=== PATIENT | male | born 1950 | race Asian ===

== ENCOUNTER 2019-09-11 12:39 | Inpatient (IN) | payer BC ==
--- NOTE | 2019-09-11 13:09 | Emergency Department Report ---
HPI - General Chief Complaint: Weakness Time Seen by Provider: 09/11/19 12:55 - HPI HPI: 69-year-old male presents to the emergency department with complaint of a one- week history of left-sided weakness. He was down in the [facility] for a reunion when the symptoms began. The patient does not have any known past medical history but also does not follow-up with any physicians and has not for years. When the left-sided weakness began the patient was seen at a hospital in the [facility]. He was diagnosed with diabetes after being found to have a h emoglobin A1c of about 10. He also had a CT scan of the head that showed some right-sided parietal hypodensity and suspicion of vasogenic edema on a CT scan of the head, and family has the report. However the patient was cleared for travel and 1 of his family members went to get him in the [facility]. He denies any headache, vision change, fever, slurred speech. ED Past Medical Hx - Past Medical History Previous Medical History?: Yes Hx Diabetes: Yes - Surgical History Past Surgical History?: No ED Review of Systems ROS: Stated complaint: WEAK, LEFT SIDE ISSUE Other details as noted in HPI Comment: All other systems reviewed and negative Constitutional: denies: chills, fever Eyes: denies: eye pain, vision change ENT: denies: ear pain, throat pain Respiratory: denies: cough Cardiovascular: denies: chest pain, palpitations Gastrointestinal: denies: abdominal pain, vomiting Genitourinary: denies: dysuria, discharge Musculoskeletal: denies: back pain, arthralgia Skin: denies: rash, lesions Neurological: weakness, numbness. denies: headache Physical Exam - Physical Exam Physical Exam: GENERAL: The patient is well-developed well-nourished. HENT: Normocephalic. Atraumatic. Patient has moist mucous membranes. EYES: Extraocular motions are intact. Pupils equal reactive to light bilaterally. No nystagmus. NECK: Supple. Trachea is midline. CHEST/LUNGS: Clear to auscultation. There is no respiratory distress noted. HEART/CARDIOVASCULAR: Regular. There is no tachycardia. There is no murmur. ABDOMEN: Abdomen is soft, nontender. Patient has normal bowel sounds. There is no abdominal distention. SKIN: Skin is warm and dry. Patient has some ecchymosis to the left forearm. NEURO: The patient is awake, alert, and oriented. The patient is cooperative. No facial asymmetry. Normal speech. Left-sided hemiparesis. There is decrease sensation to the left arm and left leg when compared to the right. MUSCULOSKELETAL: There is no tenderness or deformity. There is no evidence of acute injury. ED Course - Consultations Consultation #1: I spoke with the neurosurgeon, Dr. Joel Wen, regarding this patient's ED course and CT findings of vasogenic edema with concern for underlying mass. Dr. Maldonado is willing to come and see this patient as a consult. She has recommended for the patient to receive Decadron 20 mg IV x1 followed by Decadron 6 mg every 6 hours. She also recommends Keppra 500 mg twice daily after the patient receives a 1 g bolus. 09/11/19 14:56 ED Medical Decision Making - Lab Data Result diagrams: 09/11/19 13:22 09/11/19 13:22 - Radiology Data Radiology results: report reviewed CT BRAIN: 09/11/2019 INDICATION / CLINICAL INFORMATION: left sided hemiparesis. COMPARISON: None available. FINDINGS: BRAIN/INTRACRANIAL STRUCTURES: Unenhanced CT images of the brain were obtained. There are 3 areas of abnormal vasogenic edema consistent with multifocal metastatic disease. The largest area of vasogenic edema involves the right frontal parietal lobe, extending over a range of at least 6.5 cm. There may be an indication of the focal underlying lesion in the right frontal lobe, best seen on axial image 24. Additional areas of Visigenic edema is present in the left medial parietal lobe and left frontal lobe. Further evaluation with postcontrast CT or preferably unenhanced and enhanced MRI is suggested. There is no CT evidence of hemorrhage. There are no abnormal extra-axial fluid collections. EXTRACRANIAL STRUCTURES: Unremarkable. IMPRESSION: Areas of abnormal vasogenic edema as described above, worrisome for underlying metastatic disease. The largest area of involvement is in the right frontoparietal lobes. Follow-up contrast CT or unenhanced and enhanced MRI recommended. CT CHEST WITHOUT CONTRAST INDICATION / CLINICAL INFORMATION: RUL chest mass. TECHNIQUE: Axial CT images were obtained through the chest without contrast. All CT scans at this location are performed using CT dose reduction for ALARA by means of automated exposure control. COMPARISON: None available. FINDINGS: HEART: No significant abnormality. THORACIC AORTA: No significant abnormality. MEDIASTINUM and RGEGG: Fullness in the mediastinum suggestive of mediastinal lymphadenopathy but distinct margins of lymph nodes are not discernible. There appears to be pretracheal and subcarinal lymphadenopathy. LUNGS: A poorly aamir inated mass of the right upper lobe with obstruction of the right upper lobe bronchus and complete collapse of the right upper lobe. The size of the mass cannot be determined on this noncontrast exam. Reticular opacities of the right middle lobe extending to the hilum. A spiculated mass of the left upper lobe measures 2.4 x 1.3 cm image 54, series 2. PLEURA: No significant pleural effusion. No pneumothorax. ADDITIONAL FINDINGS: None. UPPER ABDOMEN: No significant abnormality. SKELETAL SYSTEM: No suspicious bone lesion. IMPRESSION: 1. Right upper lobe bronchogenic carcinoma obstructing the right upper lobe bronchus and producing complete collapse of the right upper lobe. The exact size of the tumor cannot be determine on this noncontrast exam. 2. Mediastinal metastatic lymphadenopathy. 3. A 2.4 cm left upper lobe lung metastasis. 4. No evidence of skeletal or hepatic metastasis. - Medical Decision Making This patient presents to the emergency department with complaint of a one-week history of progressively worsening left-sided weakness. On examination the patient has left-sided hemiparesis. He also has some numbness. He has an NIH stroke scale of 9. However the patient is well outside of the window for any TPA or thrombectomy. His CT scan of the head without contrast once again shows vasogenic edema with concern for underlying mass. A chest x-ray was done that shows a large right upper lobe mass. A CT scan without contrast was done that once again shows a very large right upper lobe mass with some lung collapse and a smaller left upper lobe mass that could be metastasis. Patient's labs have been unremarkable. At the patient's request, and the request of his , I contacted Dr. Joel Wen and Dr. Joel Wen was willing to consult on this patient. Patient was given Keppra for seizure prophylaxis and placed on Decadron. An MRI has been ordered. The patient will be admitted to the hospital for further evaluation and treatment and was accepted for admission by the hospitalist, Dr. Tenorio. - Differential Diagnosis Malignancy, CVA, hydrocephalus, electrolyte abnormalities Critical Care Time: Yes Critical care time in (mins) excluding proc time.: 35 Critical care attestation.: If time is entered above; I have spent that time in minutes in the direct care of this critically ill patient, excluding procedure time. Due to the immediate potential for life-threatening deterioration due to underlying neurologic and oncologic conditions, I spent 35 minutes of critical care time with the patient. Critical care time was spent on this patient in doing his initial evaluation, multiple re-evaluations, ordering and interpretation of labs and imaging, discussion with neurosurgery and the hospitalist services, as well as multiple discussion with the patient and his family. Critical Care Time: 35 minutes ED Disposition Clinical Impression: Vasogenic brain edema, Mass of upper lobe of right lung, Mass of upper lobe of left lung Hemiparesis of left nondominant side Qualifiers: Hemiparesis etiology: unspecified Qualified Code(s): G81.94 - Hemiplegia, unspecified affecting left nondominant side Disposition: OP ADMIT IP TO THIS HOSP Is pt being admited?: Yes Condition: Serious Time of Disposition: 17:03 - Assessment Assessment Interval: 7-10 Days - Level of Consciousness 1a. Level of Consciousness: alert/keenly responsive - LOC Questions 1b. LOC Questions: answers both correctly - LOC Command 1c. LOC Commands: performs tasks correctly - Best Gaze 2. Best Gaze: normal - Visual 3. Visual: no visual loss - Facial Palsy 4. Facial Palsy: normal symmetrical movement - Motor Arm 5a. Motor Arm Left: no movement 5b. Motor Arm Right: no drift - Motor Leg 6a. Motor Leg Left: no movement 6b. Motor Leg Right: no drift - Limb Ataxia 7. Limb Ataxia: absent - Sensory 8. Sensory: mild/moderate sensory loss - Best Language 9. Best Language: no aphasia - Dysarthria 10. Dysarthria: normal - Extinction and Inattention 11. Extinction/Inattention: no abnormality - Scoring Total Score: 9 Stroke Severity: Moderate Stroke
[2019-09-11 13:42] LABS: Basophils % (Auto) 0.6 % (0.0-1.8); Eosinophils # (Auto) 0.2 K/mm3 (0.0-0.4); Eosinophils % (Auto) 3.8 % (0.0-4.3); Hematocrit 38.5 % (35.5-45.6); Hemoglobin 12.5 gm/dl (11.8-15.2); Lymphocytes # (Auto) 1.3 K/mm3 (1.2-5.4); Lymphocytes % (Auto) 20.3 % (13.4-35.0); Mean Corpuscular HGB Conc 32 % (32-34); Mean Corpuscular Volume 86 fl (84-94); Monocytes # (Auto) 0.5 K/mm3 (0.0-0.8); Monocytes % (Auto) 7.6 % (0.0-7.3); Platelet Count 300 K/mm3 (140-440); Red Blood Count 4.47 M/mm3 (3.65-5.03); Red Cell Distribution Width 14.2 % (13.2-15.2)
--- NOTE | 2019-09-11 13:43 | XRay Report ---
CHEST 1 VIEW INDICATION: weakness. COMPARISON: None. FINDINGS: Support devices: None. Heart: Within normal limits. Pulmonary vasculature: Normal. Lungs/Pleura: The right lung apex and a significant portion of the right upper lobe are densely opaci fied with sharp demarcation between abnormal and normal lung. The right hilum is retracted superiorly . The right lung base is clear. The left lung is normally expanded and clear.No pleural effusion. Additional findings: None. IMPRESSION: 1. Large right upper lobe lung mass with collapse of the right upper lobe. 2. No CHF or pneumonia. Signer Name: Efrain Oden MD Signed: 09/11/2019 1:38 PM Workstation Name: [id number]
[2019-09-11 13:47] LABS: INR 1.02 (0.87-1.13)
[2019-09-11 13:48] LABS: Partial Thromboplastin Time 41.7 Sec. (24.2-36.6)
--- NOTE | 2019-09-11 14:17 | Cat Scan Report ---
CT BRAIN: 09/11/2019 INDICATION / CLINICAL INFORMATION: left sided hemiparesis. COMPARISON: None available. FINDINGS: BRAIN/INTRACRANIAL STRUCTURES: Unenhanced CT images of the brain were obtained. There are 3 areas of abnormal vasogenic edema consistent with multifocal metastatic disease. The larg est area of vasogenic edema involves the right frontal parietal lobe, extending over a range of at le ast 6.5 cm. There may be an indication of the focal underlying lesion in the right frontal lobe, best seen on axial image 24. Additional areas of Visigenic edema is present in the left medial parietal lobe and left frontal lobe . Further evaluation with postcontrast CT or preferably unenhanced and enhanced MRI is suggested. There is no CT evidence of hemorrhage. There are no abnormal extra-axial fluid collections. EXTRACRANIAL STRUCTURES: Unremarkable. IMPRESSION: Areas of abnormal vasogenic edema as described above, worrisome for underlying metastatic disease. T he largest area of involvement is in the right frontoparietal lobes. Follow-up contrast CT or unenhan benjamin and enhanced MRI recommended. All CT scans at this location are performed using dose reduction to ALARA by means of automated expos ure control. Signer Name: Denis Liu MD Signed: 09/11/2019 2:13 PM Workstation Name: [email or web address]
--- NOTE | 2019-09-11 14:24 | Cat Scan Report ---
CT CHEST WITHOUT CONTRAST INDICATION / CLINICAL INFORMATION: RUL chest mass. TECHNIQUE: Axial CT images were obtained through the chest without contrast. All CT scans at this location are p erformed using CT dose reduction for ALARA by means of automated exposure control. COMPARISON: None available. FINDINGS: HEART: No significant abnormality. THORACIC AORTA: No significant abnormality. MEDIASTINUM and GREGG: Fullness in the mediastinum suggestive of mediastinal lymphadenopathy but disti nct margins of lymph nodes are not discernible. There appears to be pretracheal and subcarinal lympha denopathy. LUNGS: A poorly marginated mass of the right upper lobe with obstruction of the right upper lobe bron chus and complete collapse of the right upper lobe. The size of the mass cannot be determined on this noncontrast exam. Reticular opacities of the right middle lobe extending to the hilum. A spiculated mass of the left upper lobe measures 2.4 x 1.3 cm image 54, series 2. PLEURA: No significant pleural effusion. No pneumothorax. ADDITIONAL FINDINGS: None. UPPER ABDOMEN: No significant abnormality. SKELETAL SYSTEM: No suspicious bone lesion. IMPRESSION: 1. Right upper lobe bronchogenic carcinoma obstructing the right upper lobe bronchus and producing co mplete collapse of the right upper lobe. The exact size of the tumor cannot be determine on this nonc ontrast exam. 2. Mediastinal metastatic lymphadenopathy. 3. A 2.4 cm left upper lobe lung metastasis. 4. No evidence of skeletal or hepatic metastasis. Signer Name: Efrain Oden MD Signed: 09/11/2019 2:20 PM Workstation Name: [id number]
[2019-09-11] MEDS ORDERED: levETIRAcetam 1000 MG/NS 0.75% 1,000 MG/100 ML BAG IV ONE (14:52)
[2019-09-11] MEDS ORDERED: dexAMETHasone 20 MG in SODIUM CHLORIDE 0.9% 50 ML IV ONE (14:52)
[2019-09-11 15:08] LABS: Alanine Aminotransferase 7 units/L (7-56); Albumin 3.9 g/dL (3.9-5); BUN/Creatinine Ratio 20; Blood Urea Nitrogen 12 mg/dL (9-20); Calcium 9.2 mg/dL (8.4-10.2); Hemolysis Index 4
[2019-09-11] MEDS ORDERED: ALBUTEROL 2.5 MG/3 ML NEBU IH PRN (15:14)
--- NOTE | 2019-09-11 15:16 | History and Physical Report ---
History of Present Illness Chief complaint: I feel we, left side and is been going on for a while History of present illness: 69 YO Male with DM presents to ED for evaluation. Patient states that he has experienced left-sided weakness over the past 1 week with progressively worsening symptoms over the same timeframe. Patient was seen and evaluated at an outside hospital in the [facility] at the outset of symptoms 1 week ago and was diagnosed with new onset diabetes mellitus as well as abnormal findings on brain's CT scan. Patient traveled back [facility] and upon arrival the patient decided to seek further care. Patient transported to [facility] via private vehicle. Patient seen and evaluated in the emergency department. Lab and imaging studies reviewed. Patient underwent CT scan of the brain which showed vasogenic edema as well as CT scan of the chest which showed bilateral lung nodules consistent with malignancy. Neurosurgery service consulted and the patient deemed not a candidate for transfer. Patient will be seen and evaluated by neurosurgical service. Patient admitted to [facility] and initiated on IV Decadron therapy as well as Keppra therapy as per neurosurgery recommendations. Patient denies fever, chills, chest pain, palpitations, trauma, productive cough, unintentional weight loss, night sweats, skin rash, or known ill contacts. No prior admission for review. No medication listed for reconciliation at the time of admission. Past History Past Medical History: diabetes Past Surgical History: No surgical history, Other (Reviewed) Social history: , lives with family. denies: smoking, alcohol abuse, prescription drug abuse Family history: no significant family history, other (Reviewed) Medications and Allergies Allergies Allergy/AdvReac Type Severity Reaction Status Date / Time No Known Allergies Allergy Unverified 09/11/19 12:46 Active Meds: Active Medications Dexamethasone 20 mg/ Sodium (Chloride) 55 mls @ 100 mls/hr IV ONCE ONE Stop: 09/11/19 15:24 Review of Systems Constitutional: no weight loss, no weight gain, no fever, no chills Ears, nose, mouth and throat: no ear pain, no ear discharge, no nose pain, no nasal congestion Cardiovascular: no chest pain, no orthopnea, no palpitations, no edema, no syncope, no lightheadedness Respiratory: no cough, no cough with sputum, no hemoptysis, no dyspnea on exertion Gastrointestinal: no nausea, no vomiting, no diarrhea, no change in bowel habits, no hematemesis Genitourinary Male: no dysuria, no hematuria, no flank pain, no urinary frequency, no urinary hesitancy, no nocturia, no erectile dysfunction Rectal: no pain, no incontinence, no bleeding Musculoskeletal: no neck stiffness, no neck pain, no shooting arm pain, no low back pain Integumentary: no rash, no pruritis, no redness, no wounds, no jaundice Neurological: weakness, numbness, no tingling, no seizures, no syncope, no vertigo, no headaches, no migraines, no convulsions, no aphasia, no change in speech, no confusion Psychiatric: no anxiety, no memory loss, no change in sleep habits, no hypersomnia, no change in appetite, no change in libido, no disorientation, no hallucinations Endocrine: no cold intolerance, no heat intolerance, no polyphagia, no excessive thirst, no polydipsia, no polyuria, no nocturia, no excessive sweating, no weight change Hematologic/Lymphatic: no lymphadenopathy, no lymphedema Allergic/Immunologic: no urticaria, no allergic rhinitis, no persistent infect ions, no angioedema Exam - Constitutional Vitals: Temp Pulse Resp BP Pulse Ox 18 09/11/19 13:03 General appearance: Present: no acute distress, well-nourished - EENT Eyes: Present: PERRL ENT: hearing intact, clear oral mucosa - Neck Neck: Present: supple, normal ROM - Respiratory Respiratory effort: normal Respiratory: bilateral: CTA - Cardiovascular Heart Sounds: Present: S1 & S2. Absent: rub, click - Extremities Extremities: pulses symmetrical, No edema Peripheral Pulses: within normal limits - Abdominal General gastrointestinal: Present: soft, non-tender, non-distended, normal bowel sounds Male genitourinary: Present: normal - Integumentary Integumentary: Present: clear, warm, dry - Musculoskeletal Musculoskeletal: left sided weakness - Psychiatric Psychiatric: appropriate mood/affect, intact judgment & insight - Neurologic Neurologic: CNII-XII intact, focal deficits, no moves all extremities, no gait normal Results - Labs CBC & Chem 7: 09/11/19 13:22 09/11/19 13:22 Labs: Abnormal lab results 09/11/19 09/11/19 09/11/19 Range/Units 13:22 13:22 13:22 [place] % (Auto) 7.6 H (0.0-7.3) % APTT 41.7 H (24.2-36.6) Sec. VBG pH (7.320-7.420) Chloride 94.9 L (98-107) mmol/L Creatinine 0.6 L (0.8-1.5) mg/dL Glucose 248 H (75-100) mg/dL 09/11/19 Range/Units 13:22 [place] % (Auto) (0.0-7.3) % APTT (24.2-36.6) Sec. VBG pH 7.297 L (7.320-7.420) Chloride (98-107) mmol/L Creatinine (0.8-1.5) mg/dL Glucose (75-100) mg/dL Assessment and Plan - Patient Problems (1) Vasogenic brain edema Current Visit: Yes Status: Acute Plan to address problem: Neurosurgery consult placed in ED, neurosurgery following, neurochecks, notify neurosurgery team for changes in neurologic exam, notify neurosurgery for symptoms consistent with pending herniation: Hypertension/bradycardia, IV Decadron every 6 hours scheduled, IV Keppra twice daily, supportive care. (2) Hemiparesis of left nondominant side Current Visit: Yes Status: Acute Qualifiers: Hemiparesis etiology: unspecified Qualified Code(s): G81.94 - Hemiplegia, unspecified affecting left nondominant side Plan to address problem: Supportive care, treat vasogenic edema, supportive care, neurosurgery consulted. (3) Mass of upper lobe of left lung Current Visit: Yes Status: Acute Plan to address problem: Pulmonary team consulted, suspect malignancy with metastatic disease to the brain, supportive care. CT scan chest, CT head, submental oxygen. (4) Mass of upper lobe of right lung Current Visit: Yes Status: Acute Plan to address problem: Pulmonary team consulted, suspect malignancy with metastatic disease to the brain, supportive care. CT scan chest, CT head, submental oxygen. (5) Diabetes Current Visit: Yes Status: Acute Plan to address problem: Consistent carbohydrate diet, sliding scale insulin therapy, Accu-Chek, hypoglycemia protocol. (6) DVT prophylaxis Current Visit: Yes Status: Acute Plan to address problem: SCD to bilateral lower extremities while in bed, hold anticoagulation overnight, reevaluate in a.m.
--- NOTE | 2019-09-11 17:54 | Magnetic Resonance Report ---
MR brain wo/w con INDICATION / CLINICAL INFORMATION: 69 years Male; MAIN: Brain mass, left side weakness. TECHNIQUE: Multiplanar, multisequence MR images of the brain were obtained. COMPARISON: None available. FINDINGS: BRAIN / INTRACRANIAL CONTENTS: Multiple enhancing lesions identified in both cerebral hemispheres. La rgest is seen in the postcentral gyral region on the right, measuring nearly 2 cm in maximum dimensio n. Significant surrounding vasogenic edema noted. No definitive signs of posterior fossa or brainstem involvement appreciated. Focal mass effect and minimal right to left midline shift noted. There is a lso significant edema associated with small lesions in the middle frontal gyral region on the left, a s well as the left precuneus. Overall, there is no diffusion abnormality to suggest bacterial abscess . Otherwise, no acute hemorrhage, mass effect, midline shift, hydrocephalus, or acute, large territori al infarct. No chronic infarct or atrophy. Minimal, nonspecific white matter disease otherwise noted. CRANIOCERVICAL JUNCTION: No significant abnormality. VASCULAR FLOW-VOIDS: No significant abnormality. ORBITS: No significant abnormality of visualized orbits. SINUSES / MASTOIDS: Mild to moderate mucosal thickening seen in the ethmoids and inferior mastoids on the right. ADDITIONAL FINDINGS: None. IMPRESSION: 1. Findings concerning for metastatic disease, as described above. Signer Name: Skinny Grewal MD, III Signed: 09/11/2019 5:50 PM Workstation Name: [id number]
--- NOTE | 2019-09-11 20:45 | Consultation ---
History of Present Illness Consult date: 09/11/19 Requesting physician: VERONIQUE GERARDO Reason for Consult: brain tumor Chief complaint: Left sided weakness History of present illness: 69 year old male with history of new onset diabetes and left sided weakness. He presented to the ED with complaining of left side weakness for over one we ek. He admits to chronic tobacco use. He denies headaches. Imaging studies in ED revealed CT chest with left and right upper lobe masses. MRI and CT head reveals multiple lesions within bilateral hemispheres. Past History Past Medical History: diabetes Past Surgical History: No surgical history, Other (Reviewed) Social history: , lives with family. denies: smoking (positive tobbaco use), alcohol abuse, prescription drug abuse Family history: no significant family history, other (Reviewed) Medications and Allergies Allergies Allergy/AdvReac Type Severity Reaction Status Date / Time No Known Allergies Allergy Unverified 09/11/19 12:46 Active Meds: Active Medications Albuterol (Proventil) 2.5 mg IH Q3HRT PRN PRN Reason: Shortness Of Breath Dexamethasone (Decadron) 6 mg IV Q6HR DENISE Levetiracetam 500 mg/ Dextrose 105 mls @ 400 mls/hr IV Q12HR DENISE Sodium Chloride (Sodium Chloride Flush Syringe 10 Ml) 10 ml IV BID DENISE Sodium Chloride (Sodium Chloride Flush Syringe 10 Ml) 10 ml IV PRN PRN PRN Reason: LINE FLUSH Review of Systems Constitutional: weight loss, weakness Physical Examination - Vital Signs Vital Signs: Vital Signs Resp 18 09/11/19 13:03 - Constitutional General appearance: comfortable - EENT EENT: Present: PERRL - Neurologic Cranial nerve examination: PERRL, EOMI, V1/V2/V3 grossly intact, face symmetric Speech examination: intact Detailed motor examination: other (left side hemiparesis) Motor examination - left side: 2/5: biceps, triceps, wrist flexion, wrist extension, qa reviewer, hip flexors, knee extensors Results - Laboratory Findings CBC and BMP: 09/11/19 13:22 09/11/19 13:22 Abnormal Lab Findings: Abnormal Labs 09/11/19 09/11/19 09/11/19 13:22 13:22 13:22 [place] % (Auto) 7.6 H APTT 41.7 H VBG pH Chloride 94.9 L Creatinine 0.6 L Glucose 248 H 09/11/19 13:22 [place] % (Auto) APTT VBG pH 7.297 L Chloride Creatinine Glucose - Diagnostic Findings Additional findings: MRI of brain with and without contrast shows up to 6 lesions contrast enhancing with significant edema around the right fronto parietal and left parietal area. The other lesions are small and distributed throughout the brain parenchyma. Assessment and Plan - Patient Problems (1) Vasogenic brain edema Current Visit: Yes Status: Acute Plan to address problem: Continue IV decadron and Keppra. Switch to oral meds as tolerated. PT/OT evaluation and treatment. I recommend biopsy of lung lesion and whole brain radiation. Non operative unless biopsy cannot be obtained from lung lesions. Please call me if brain biopsy is needed.
[2019-09-11] MEDS: levETIRAcetam 500 MG in DEXTROSE 5% IN WATER 100 ML IV SCH (21:38)
[2019-09-11] MEDS: dexAMETHasone 4 MG/ML VIAL IV SCH ×2 (21:39→23:07)
[2019-09-12 05:01] LABS: Basophils % (Auto) 0.2 % (0.0-1.8); Eosinophils % (Auto) 0.1 % (0.0-4.3); Hematocrit 37.7 % (35.5-45.6); Hemoglobin 12.6 gm/dl (11.8-15.2); Lymphocytes # (Auto) 0.5 K/mm3 (1.2-5.4); Lymphocytes % (Auto) 12.2 % (13.4-35.0); Mean Corpuscular HGB Conc 33 % (32-34); Mean Corpuscular Volume 86 fl (84-94); Monocytes % (Auto) 1.2 % (0.0-7.3); Platelet Count 305 K/mm3 (140-440); Red Blood Count 4.41 M/mm3 (3.65-5.03)
[2019-09-12 05:23] LABS: BUN/Creatinine Ratio 27; Blood Urea Nitrogen 16 mg/dL (9-20); Hemolysis Index 11
[2019-09-12] MEDS: dexAMETHasone 4 MG/ML VIAL IV SCH ×4 (06:48→23:40)
--- NOTE | 2019-09-12 09:20 | Consultation ---
History of Present Illness Consult date: 09/12/19 Requesting physician: VERONIQUE GERARDO Reason for consult: abnormal CXR/CT History of present illness: 69 y/o male who presented with weakness. CT head showed vasogenic edema and multiple lesions. CT chest showed right upper lobe and left upper lobe lesions. Pulmonary consulted for lesions. Past History Past Medical History: diabetes Past Surgical History: No surgical history, Other (Reviewed) Social history: , lives with family. denies: smoking (positive tobbaco use), alcohol abuse, prescription drug abuse Family history: no significant family history, other (Reviewed) Medications and Allergies Allergies Allergy/AdvReac Type Severity Reaction Status Date / Time No Known Allergies Allergy Unverified 09/11/19 12:46 Active Meds: Active Medications Albuterol (Proventil) 2.5 mg IH Q3HRT PRN PRN Reason: Shortness Of Breath Dexamethasone (Decadron) 6 mg IV Q6HR [facility] Last Admin: 09/12/19 06:48 Dose: 6 mg Documented by: Levetiracetam 500 mg/ Dextrose 105 mls @ 400 mls/hr IV Q12HR [facility] Last Admin: 09/11/19 21:38 Dose: 400 mls/hr Documented by: Sodium Chloride (Sodium Chloride Flush Syringe 10 Ml) 10 ml IV BID [facility] Last Admin: 09/11/19 21:46 Dose: 10 ml Documented by: Sodium Chloride (Sodium Chloride Flush Syringe 10 Ml) 10 ml IV PRN PRN PRN Reason: LINE FLUSH Review of Systems All systems: negative Physical Examination Vital signs: Vital Signs Resp 18 09/11/19 13:03 General appearance: no acute distress, alert Eyes: non-icteric ENT: oropharynx moist Neck: supple, no JVD Effort: normal Ascultation: Right: diminished breath sounds (upper lobe), Left: clear Percussion: Right: dull (upper lobe) Cardiovascular: regular rate and rhythm Gastrointestinal: normoactive bowel sounds, soft Extremities: no edema Results - Laboratory Findings CBC and BMP: 09/12/19 04:04 09/12/19 04:04 PT/INR, D-dimer PT 13.5 Sec. (12.2-14.9) 09/11/19 13:22 INR 1.02 (0.87-1.13) 09/11/19 13:22 Abnormal lab findings: Abnormal Labs 09/11/19 09/11/19 09/11/19 13:22 13:22 13:22 WBC Lymph % (Auto) [place] % (Auto) 7.6 H Lymph # Seg Neutrophils % APTT 41.7 H VBG pH Sodium Chloride 94.9 L Creatinine 0.6 L Glucose 248 H 09/11/19 09/12/19 09/12/19 13:22 04:04 04:04 WBC 4.1 L Lymph % (Auto) 12.2 L [place] % (Auto) Lymph # 0.5 L Seg Neutrophils % 86.3 H APTT VBG pH 7.297 L Sodium 134 L Chloride 94.6 L Creatinine 0.6 L Glucose 413 H - Diagnostic Findings Chest x-ray: image reviewed CT scan - chest: image reviewed Assessment and Plan Given the amount of vasogenic edema present on CT, would not feel comfortable performing bronch for biopsy given the chance for increases in intracranial pressure that could lead to herniation. At this time suggest CT guided biopsy of left upper lobe or event thoracentesis of right pleural effusion (maybe too small) to obtain diagnosis. Will discuss with patient and family.
[2019-09-12] MEDS: levETIRAcetam 500 MG in DEXTROSE 5% IN WATER 100 ML IV SCH ×2 (10:50→22:13)
[2019-09-12] MEDS: INSULIN LISPRO 100 UNIT/ML SUB-Q SCH ×4 (12:41→22:37)
--- NOTE | 2019-09-12 13:04 | Progress Note ---
Assessment and Plan Assessment and plan: --Right upper lobe bronchogenic carcinoma; On CT chest, pulmonary following CT-guided biopsy tomorrow oxygen titrate O2 sats to more than 90% --Complete collapse right upper lobe; Due to obstructing right upper lobe bronchogenic carcinoma Supportive care, pulmonary following --Mediastinal metastatic lymph nodes; Supportive care, follow lung lesion biopsy Oncology consult --Metastatic brain lesions/with vasogenic cerebral edema Neurosurgeon evaluated the patient, recommend IV Decadron IV Keppra, seizure precautions, poor prognosis. Oncology consult --Hyponatremia; due to hyperglycemia as well as secondary to brain lesion Closely monitor electrolytes --Type 2 diabetes mellitus; uncontrolled Accu-Cheks, sliding scale coverage, ADA diet Long-acting insulin, check A1c Diabetic education, nutrition education --DVT prophylaxis; SCDs No pharmacologic anticoagulation in view of pending Biopsy --Full CODE STATUS Very poor prognosis Discussed with patient's and son at the bedside Monitor closely and adjust management as needed. Plan of care reviewed with the patient's family and the nurse Critical care time 32 minutes History Interval history: Patient seen and examined in IMCU at the bedside this morning Patient's chart and other medical records reviewed Patient's and son at the bedside Complains of generalized weakness Scheduled for lung lesion biopsy tomorrow Patient chronically ill looking cachectic Mild distress Vital signs reviewed Hospitalist Physical - Constitutional Vitals: Temp Pulse Resp BP Pulse Ox 98.0 F 69 21 125/80 91 09/12/19 08:00 09/12/19 11:10 09/12/19 11:10 09/12/19 11:10 09/12/19 11:10 General appearance: Present: no acute distress, well-nourished - EENT Eyes: Present: PERRL, EOM intact - Neck Neck: Present: supple, normal ROM - Respiratory Respiratory effort: normal Respiratory: bilateral: diminished, rhonchi, negative: rales, wheezing - Cardiovascular Rhythm: regular Heart Sounds: Present: S1 & S2 - Extremities Extremities: no ischemia, No edema - Abdominal General gastrointestinal: soft, non-tender, non-distended, normal bowel sounds - Integumentary Integumentary: Present: clear, warm - Psychiatric Psychiatric: appropriate mood/affect, cooperative - Neurologic Neurologic: moves all extremities, other (Confused) Results - Labs CBC & Chem 7: 09/12/19 04:04 09/12/19 04:04 Labs: Laboratory Last Values WBC 4.1 K/mm3 (4.5-11.0) L 09/12/19 04:04 RBC 4.41 M/mm3 (3.65-5.03) 09/12/19 04:04 Hgb 12.6 gm/dl (11.8-15.2) 09/12/19 04:04 Hct 37.7 % (35.5-45.6) 09/12/19 04:04 MCV 86 fl (84-94) 09/12/19 04:04 MCH 29 pg (28-32) 09/12/19 04:04 MCHC 33 % (32-34) 09/12/19 04:04 RDW 14.0 % (13.2-15.2) 09/12/19 04:04 Plt Count 305 K/mm3 (140-440) 09/12/19 04:04 Lymph % (Auto) 12.2 % (13.4-35.0) L 09/12/19 04:04 [place] % (Auto) 1.2 % (0.0-7.3) 09/12/19 04:04 Eos % (Auto) 0.1 % (0.0-4.3) 09/12/19 04:04 Baso % (Auto) 0.2 % (0.0-1.8) 09/12/19 04:04 Lymph # 0.5 K/mm3 (1.2-5.4) L 09/12/19 04:04 [place] # 0.0 K/mm3 (0.0-0.8) 09/12/19 04:04 Eos # 0.0 K/mm3 (0.0-0.4) 09/12/19 04:04 Baso # 0.0 K/mm3 (0.0-0.1) 09/12/19 04:04 Seg Neutrophils % 86.3 % (40.0-70.0) H 09/12/19 04:04 Seg Neutrophils # 3.5 K/mm3 (1.8-7.7) 09/12/19 04:04 PT 13.5 Sec. (12.2-14.9) 09/11/19 13:22 INR 1.02 (0.87-1.13) 09/11/19 13:22 APTT 41.7 Sec. (24.2-36.6) H 09/11/19 13:22 VBG pH 7.297 (7.320-7.420) L 09/11/19 13:22 Sodium 134 mmol/L (137-145) L 09/12/19 04:04 Potassium 4.3 mmol/L (3.6-5.0) 09/12/19 04:04 Chloride 94.6 mmol/L (98-107) L 09/12/19 04:04 Carbon Dioxide 23 mmol/L (22-30) 09/12/19 04:04 Anion Gap 21 mmol/L 09/12/19 04:04 BUN 16 mg/dL (9-20) 09/12/19 04:04 Creatinine 0.6 mg/dL (0.8-1.5) L 09/12/19 04:04 Estimated GFR > 60 ml/min 09/12/19 04:04 BUN/Creatinine Ratio 27 % 09/12/19 04:04 Glucose 413 mg/dL (75-100) H 09/12/19 04:04 POC Glucose 382 (70-105) H 09/12/19 12:50 Calcium 9.0 mg/dL (8.4-10.2) 09/12/19 04:04 Total Bilirubin 0.30 mg/dL (0.1-1.2) 09/11/19 13:22 AST 17 units/L (5-40) 09/11/19 13:22 ALT 7 units/L (7-56) 09/11/19 13:22 Alkaline Phosphatase 101 units/L (35-129) 09/11/19 13:22 Troponin T < 0.010 ng/mL (0.00-0.029) 09/11/19 13:22 Total Protein 7.5 g/dL (6.3-8.2) 09/11/19 13:22 Albumin 3.9 g/dL (3.9-5) 09/11/19 13:22 Albumin/Globulin Ratio 1.1 % 09/11/19 13:22 TSH 1.460 mlU/mL (0.270-4.200) 09/11/19 13:22 Active Medications - Current Medications Current Medications: Generic Name Dose Route Start Last Admin Trade Name Freq PRN Reason Stop Dose Admin Albuterol 2.5 mg 09/11/19 15:14 Proventil IH Q3HRT PRN Shortness Of Breath Dexamethasone 6 mg 09/11/19 19:30 09/12/19 12:34 Decadron IV 6 mg Q6HR DENISE Administration Levetiracetam 500 mg/ Dextrose 105 mls @ 400 mls/hr 09/11/19 22:00 09/12/19 10:50 IV 400 mls/hr Q12HR DENISE Administration Insulin Human Lispro 0 unit 09/12/19 12:00 09/12/19 12:41 Humalog SUB-Q 10 unit Q6HR DENISE Administration Protocol Insulin Human Lispro 0 unit 09/12/19 16:30 Humalog SUB-Q ACHS DENISE Protocol Sodium Chloride 10 ml 09/11/19 22:00 09/12/19 10:50 Sodium Chloride Flush Syringe 10 Ml IV 10 ml BID DENISE Administration Sodium Chloride 10 ml 09/11/19 15:14 Sodium Chloride Flush Syringe 10 Ml IV PRN PRN LINE FLUSH Nutrition/Malnutrition Assess - Dietary Evaluation Nutrition/Malnutrition Findings: Nutrition Notes Start: 09/12/19 11:14 Freq: Status: Active Protocol: Document 09/12/19 11:14 MK (Rec: 09/12/19 11:28 [id number]) Co-Sign 09/12/19 11:14 LM Nutrition Notes Need for Assessment generated from: it service continuity supervisor,Education Initial or Follow up Assessment Current Diagnosis Diabetes Other Pertinent Diagnosis Lung mass, vasogenic brain edema Current Diet Consistent Carbohydrate Labs/Tests BG 413 Na 134 Cr 0.6 Pertinent Medications Reviewed Height 5 ft 10 in Weight 65 kg Usual Body Weight 72 kg [place] Body Weight (kg) 75.45 BMI 20.5 Intake Prior to Admission Good Weight change and time frame 22% wt change in 1 year Weight Status Appropriate Subjective/Other Information RN screen for DM education. Pt reports eating well and good appetite. Pt reports weight loss in last year due to high smoking and coffee consuption which he has recently decreased. Burn Absent Trauma Absent GI Symptoms None Current % PO Good (75-100%) Minimum of two criteria No Interpretation of Weight Loss (severe) > 20% in 1 year #1 Nutrition Diagnosis Food and nutrition-related knowledge deficit Etiology No prior education As Evidenced by Signs and Symptoms Pt report, recent DM diagnosis Is patient on ventilator? No Is Patient Ambulatory and/or Out of Bed Yes REE-([facility]-ambulatory/OOB) [ 1860.625 NUTR.[id number]] Calculation Used for Recommendations [facility] Additional Notes Pro: 65-78 g (1-1.2 g/kg) Fluid: 1 ml/kcal Nutrition Intervention Change Diet Order: Continue Teaching Recipient Patient,Family Learning Readiness Good Teaching Methods Discussion,Handout Response to Teaching Verbalize understanding, Reinforcement needed Education Handouts Provided Quick Refrence for CHO Counting Hypo/Hyperglycemia Signs CHO Counting for People with DM DM Label Reading Tips Barriers to Learning No Barriers RD phone number provided Yes Patient aware of follow up options Yes Goal #1 Understanding of consistent CHO diet Anticipated Discharge Needs: Consistent CHO Follow-Up By: 09/14/19 Additional Comments FU for DM education reinforcement
[2019-09-13] MEDS: dexAMETHasone 4 MG/ML VIAL IV SCH ×4 (06:43→23:40)
[2019-09-13] MEDS: INSULIN LISPRO 100 UNIT/ML SUB-Q SCH ×4 (08:30→22:22)
[2019-09-13] MEDS: INSULIN NPH/REGULAR 70/30 INJ SUB-Q SCH ×2 (08:44→17:35)
--- NOTE | 2019-09-13 09:53 | Progress Note ---
Assessment and Plan Assessment and plan: Patient scheduled for CT-guided biopsy of lung lesion today --Right upper lobe bronchogenic carcinoma; On CT chest, pulmonary following CT-guided biopsy today oxygen titrate O2 sats to more than 90% --Complete collapse right upper lobe; Due to obstructing right upper lobe bronchogenic carcinoma Supportive care, pulmonary following --Mediastinal metastatic lymph nodes; Supportive care, follow lung lesion biopsy Oncology consult --Metastatic brain lesions/with vasogenic cerebral edema Neurosurgeon evaluated the patient, recommend IV Decadron IV Keppra, seizure precautions, poor prognosis. Oncology consult --Hyponatremia; due to hyperglycemia as well as secondary to brain lesion Closely monitor electrolytes --Type 2 diabetes mellitus; uncontrolled Accu-Cheks, sliding scale coverage, ADA diet Long-acting insulin, check A1c Diabetic education, nutrition education --DVT prophylaxis; SCDs No pharmacologic anticoagulation in view of pending Biopsy --Full CODE STATUS Very poor prognosis Patient and family are aware History Interval history: Patient seen and examined at the bedside this morning Patient's is in the room Scheduled for CT-guided biopsy of lung lesion today N.p.o. status, patient is alert awake oriented x3 Not in acute distress, Vital signs reviewed Patient has no new complaints Hospitalist Physical - Constitutional Vitals: Temp Pulse Resp BP Pulse Ox 98.4 F 60 20 110/63 93 09/13/19 07:37 09/13/19 07:37 09/13/19 07:37 09/13/19 07:37 09/13/19 07:37 General appearance: Present: no acute distress, well-nourished - EENT Eyes: Present: PERRL, EOM intact - Neck Neck: Present: supple, normal ROM - Respiratory Respiratory effort: normal Respiratory: bilateral: diminished, rhonchi, negative: rales, wheezing - Cardiovascular Rhythm: regular Heart Sounds: Present: S1 & S2 - Extremities Extremities: no ischemia, No edema - Abdominal General gastrointestinal: soft, non-tender, non-distended, normal bowel sounds - Integumentary Integumentary: Present: clear, warm - Psychiatric Psychiatric: appropriate mood/affect, cooperative - Neurologic Neurologic: CNII-XII intact, moves all extremities Results - Labs CBC & Chem 7: 09/12/19 04:04 09/12/19 04:04 Labs: Laboratory Last Values WBC 4.1 K/mm3 (4.5-11.0) L 09/12/19 04:04 RBC 4.41 M/mm3 (3.65-5.03) 09/12/19 04:04 Hgb 12.6 gm/dl (11.8-15.2) 09/12/19 04:04 Hct 37.7 % (35.5-45.6) 09/12/19 04:04 MCV 86 fl (84-94) 09/12/19 04:04 MCH 29 pg (28-32) 09/12/19 04:04 MCHC 33 % (32-34) 09/12/19 04:04 RDW 14.0 % (13.2-15.2) 09/12/19 04:04 Plt Count 305 K/mm3 (140-440) 09/12/19 04:04 Lymph % (Auto) 12.2 % (13.4-35.0) L 09/12/19 04:04 [place] % (Auto) 1.2 % (0.0-7.3) 09/12/19 04:04 Eos % (Auto) 0.1 % (0.0-4.3) 09/12/19 04:04 Baso % (Auto) 0.2 % (0.0-1.8) 09/12/19 04:04 Lymph # 0.5 K/mm3 (1.2-5.4) L 09/12/19 04:04 [place] # 0.0 K/mm3 (0.0-0.8) 09/12/19 04:04 Eos # 0.0 K/mm3 (0.0-0.4) 09/12/19 04:04 Baso # 0.0 K/mm3 (0.0-0.1) 09/12/19 04:04 Seg Neutrophils % 86.3 % (40.0-70.0) H 09/12/19 04:04 Seg Neutrophils # 3.5 K/mm3 (1.8-7.7) 09/12/19 04:04 PT 13.5 Sec. (12.2-14.9) 09/11/19 13:22 INR 1.02 (0.87-1.13) 09/11/19 13:22 APTT 41.7 Sec. (24.2-36.6) H 09/11/19 13:22 VBG pH 7.297 (7.320-7.420) L 09/11/19 13:22 Sodium 134 mmol/L (137-145) L 09/12/19 04:04 Potassium 4.3 mmol/L (3.6-5.0) 09/12/19 04:04 Chloride 94.6 mmol/L (98-107) L 09/12/19 04:04 Carbon Dioxide 23 mmol/L (22-30) 09/12/19 04:04 Anion Gap 21 mmol/L 09/12/19 04:04 BUN 16 mg/dL (9-20) 09/12/19 04:04 Creatinine 0.6 mg/dL (0.8-1.5) L 09/12/19 04:04 Estimated GFR > 60 ml/min 09/12/19 04:04 BUN/Creatinine Ratio 27 % 09/12/19 04:04 Glucose 413 mg/dL (75-100) H 09/12/19 04:04 POC Glucose 257 (70-105) H 09/13/19 07:52 Hemoglobin A1c 12.2 % (4-6) H 09/13/19 04:06 Calcium 9.0 mg/dL (8.4-10.2) 09/12/19 04:04 Total Bilirubin 0.30 mg/dL (0.1-1.2) 09/11/19 13:22 AST 17 units/L (5-40) 09/11/19 13:22 ALT 7 units/L (7-56) 09/11/19 13:22 Alkaline Phosphatase 101 units/L (35-129) 09/11/19 13:22 Troponin T < 0.010 ng/mL (0.00-0.029) 09/11/19 13:22 Total Protein 7.5 g/dL (6.3-8.2) 09/11/19 13:22 Albumin 3.9 g/dL (3.9-5) 09/11/19 13:22 Albumin/Globulin Ratio 1.1 % 09/11/19 13:22 TSH 1.460 mlU/mL (0.270-4.200) 09/11/19 13:22 Active Medications - Current Medications Current Medications: Generic Name Dose Route Start Last Admin Trade Name Freq PRN Reason Stop Dose Admin Albuterol 2.5 mg 09/11/19 15:14 Proventil IH Q3HRT PRN Shortness Of Breath Dexamethasone 6 mg 09/11/19 19:30 09/13/19 06:43 Decadron IV 6 mg Q6HR DENISE Administration Levetiracetam 500 mg/ Dextrose 105 mls @ 400 mls/hr 09/11/19 22:00 09/12/19 22:13 IV 400 mls/hr Q12HR DENISE Administration Insulin Human Isoph/Insulin Regular 10 unit 09/13/19 08:00 09/13/19 08:44 Humulin 70/30 SUB-Q 10 unit BIDDIAB DENISE Administration Insulin Human Lispro 0 unit 09/12/19 16:30 09/13/19 08:30 Humalog SUB-Q 4 unit ACHS DENISE Administration Protocol Sodium Chloride 10 ml 09/11/19 22:00 09/12/19 22:14 Sodium Chloride Flush Syringe 10 Ml IV 10 ml BID DENISE Administration Sodium Chloride 10 ml 09/11/19 15:14 Sodium Chloride Flush Syringe 10 Ml IV PRN PRN LINE FLUSH Nutrition/Malnutrition Assess - Dietary Evaluation Nutrition/Malnutrition Findings: Nutrition Notes Start: 09/12/19 11:14 Freq: Status: Active Protocol: Document 09/12/19 11:14 THEODORA (Rec: 09/12/19 11:28 THEODORA [id number]) Co-Sign 09/12/19 11:14 LM Nutrition Notes Need for Assessment generated from: supervisor remelt,Education Initial or Follow up Assessment Current Diagnosis Diabetes Other Pertinent Diagnosis Lung mass, vasogenic brain edema Current Diet Consistent Carbohydrate Labs/Tests BG 413 Na 134 Cr 0.6 Pertinent Medications Reviewed Height 5 ft 10 in Weight 65 kg Usual Body Weight 72 kg [place] Body Weight (kg) 75.45 BMI 20.5 Intake Prior to Admission Good Weight change and time frame 22% wt change in 1 year Weight Status Appropriate Subjective/Other Information RN screen for DM education. Pt reports eating well and good appetite. Pt reports weight loss in last year due to high smoking and coffee consuption which he has recently decreased. Burn Absent Trauma Absent GI Symptoms None Current % PO Good (75-100%) Minimum of two criteria No Interpretation of Weight Loss (severe) > 20% in 1 year #1 Nutrition Diagnosis Food and nutrition-related knowledge deficit Etiology No prior education As Evidenced by Signs and Symptoms Pt report, recent DM diagnosis Is patient on ventilator? No Is Patient Ambulatory and/or Out of Bed Yes [facility] [ 1860.625 NUTR.MSJOOB] [facility] Additional Notes Pro: 65-78 g (1-1.2 g/kg) Fluid: 1 ml/kcal Nutrition Intervention Change Diet Order: Continue Teaching Recipient Patient,Family Learning Readiness Good Teaching Methods Discussion,Handout Response to Teaching Verbalize understanding, Reinforcement needed Education Handouts Provided Quick Refrence for CHO Counting Hypo/Hyperglycemia Signs CHO Counting for People with DM DM Label Reading Tips Barriers to Learning No Barriers RD phone number provided Yes Patient aware of follow up options Yes Goal #1 Understanding of consistent CHO diet Anticipated Discharge Needs: Consistent CHO Follow-Up By: 09/14/19 Additional Comments FU for DM education reinforcement
[2019-09-13] MEDS: levETIRAcetam 500 MG in DEXTROSE 5% IN WATER 100 ML IV SCH ×2 (10:11→22:20)
--- NOTE | 2019-09-13 11:57 | Progress Note ---
Assessment and Plan Spoke with IR this am. Will attempt thora first. 60ccs would be enough. If not able to get or that happens to come back negative would attempt bronch. Would repeat head CT though prior but most likely edema is improving given change in neurologic exam. Will continue to follow. Subjective Date of service: 09/13/19 Interval history: No acute events. has more movement of left sided now. Tolerating steroids and anti-epileptic therapy. Objective Vital Signs - 12hr 09/13/19 09/13/19 09/13/19 02:09 02:10 02:59 Temperature 97.8 F Pulse Rate 61 59 L 60 Respiratory 16 Rate Blood Pressure 118/64 O2 Sat by Pulse 92 93 Oximetry 09/13/19 09/13/19 07:37 10:00 Temperature 98.4 F Pulse Rate 60 63 Respiratory 20 Rate Blood Pressure 110/63 O2 Sat by Pulse 93 Oximetry Constitutional: no acute distress, alert Eyes: non-icteric ENT: oropharynx moist Neck: supple, no JVD Effort: normal Ascultation: Right: diminished breath sounds (upper lobe), Left: clear Percussion: Right: dull (upper lobe) Cardiovascular: regular rate and rhythm Gastrointestinal: normoactive bowel sounds, soft Extremities: no edema CBC and BMP: 09/12/19 04:04 09/12/19 04:04 ABG, PT/INR, D-dimer: PT/INR, D-dimer PT 13.5 Sec. (12.2-14.9) 09/11/19 13:22 INR 1.02 (0.87-1.13) 09/11/19 13:22 Abnormal lab findings: Abnormal Labs 09/11/19 09/11/19 09/11/19 13:22 13:22 13:22 WBC Lymph % (Auto) [place] % (Auto) 7.6 H Lymph # Seg Neutrophils % APTT 41.7 H VBG pH Sodium Chloride 94.9 L Creatinine 0.6 L Glucose 248 H POC Glucose Hemoglobin A1c 09/11/19 09/12/19 09/12/19 13:22 04:04 04:04 WBC 4.1 L Lymph % (Auto) 12.2 L [place] % (Auto) Lymph # 0.5 L Seg Neutrophils % 86.3 H APTT VBG pH 7.297 L Sodium 134 L Chloride 94.6 L Creatinine 0.6 L Glucose 413 H POC Glucose Hemoglobin A1c 09/12/19 09/12/19 09/12/19 12:50 17:37 21:33 WBC Lymph % (Auto) [place] % (Auto) Lymph # Seg Neutrophils % APTT VBG pH Sodium Chloride Creatinine Glucose POC Glucose 382 H 259 H 279 H Hemoglobin A1c 09/13/19 09/13/19 04:06 07:52 WBC Lymph % (Auto) [place] % (Auto) Lymph # Seg Neutrophils % APTT VBG pH Sodium Chloride Creatinine Glucose POC Glucose 257 H Hemoglobin A1c 12.2 H
--- NOTE | 2019-09-13 13:47 | Ultrasound Report ---
ULTRASOUND CHEST HISTORY: Right pleural effusion TECHNIQUE: Grayscale ultrasound. FINDINGS: Targeted ultrasound on the right side of the chest was performed for ultrasound-guided right thoracen tesis. I scanned this patient myself. No significant right pleural fluid was present. IMPRESSION: Right pleural effusion has resolved since 09/11/2019 CT chest. Ultrasound-guided thoracentesis could no t be performed. Signer Name: Redd Damico Jr, MD Signed: 09/13/2019 1:43 PM Workstation Name: [id number]
--- NOTE | 2019-09-13 18:05 | Event Note ---
Date: 09/13/19 Ultrasound-guided thoracentesis attempted by radiology Right pleural effusion has resolved since 09/11/2019 Ultrasound-guided thoracentesis could not be performed
[2019-09-13] MEDS ORDERED: SODIUM CHLORIDE 0.9% 250ML 250 ML IV ONE (20:04)
[2019-09-14] MEDS: dexAMETHasone 4 MG/ML VIAL IV SCH ×3 (06:01→17:16)
--- NOTE | 2019-09-14 08:21 | Progress Note ---
Assessment and Plan Assessment and plan: Patient scheduled for CT-guided biopsy of lung lesion yesterday and was cancelled Unable to have thoracentesis[ not enough of fluid on US] --Right upper lobe bronchogenic carcinoma; On CT chest, pulmonary following CT-guided biopsy/bronchoscopy per pulmonology oxygen titrate O2 sats to more than 90% --Complete collapse right upper lobe; Due to obstructing right upper lobe bronchogenic carcinoma Supportive care, pulmonary following --Mediastinal metastatic lymph nodes; Supportive care, follow lung lesion biopsy Oncology consult --Metastatic brain lesions/with vasogenic cerebral edema Follow-up CT head; no significant change from the previous CT Neurosurgeon evaluated the patient, on IV Decadron, IV Keppra, seizure precautions, poor prognosis. Oncology consult if needed --Hyponatremia; due to hyperglycemia as well as secondary to brain lesion Closely monitor electrolytes --Type 2 diabetes mellitus; uncontrolled Accu-Cheks, sliding scale coverage, ADA diet Long-acting insulin, check A1c Diabetic education, nutrition education --DVT prophylaxis; SCDs Lovenox --Full CODE STATUS Very poor prognosis D/W Patient and family Are stable bronchoscopy tomorrow History Interval history: I have seen the patient at bedside this morning in his room Patient's chart, medications, and other documents reviewed Patient was scheduled for CT-guided biopsy initially, later canceled Chest ultrasound ,not enough fluid for thoracentesis Patient complains of generalized weakness And some shortness of breath Vital signs reviewed Hospitalist Physical - Constitutional Vitals: Temp Pulse Resp BP Pulse Ox 98.3 F 58 L 20 95/54 93 09/13/19 21:07 09/14/19 00:00 09/14/19 00:00 09/13/19 21:07 09/14/19 00:00 General appearance: Present: no acute distress, well-nourished - EENT Eyes: Present: PERRL, EOM intact - Neck Neck: Present: supple Results - Labs CBC & Chem 7: 09/12/19 04:04 09/12/19 04:04 Labs: Laboratory Last Values WBC 4.1 K/mm3 (4.5-11.0) L 09/12/19 04:04 RBC 4.41 M/mm3 (3.65-5.03) 09/12/19 04:04 Hgb 12.6 gm/dl (11.8-15.2) 09/12/19 04:04 Hct 37.7 % (35.5-45.6) 09/12/19 04:04 MCV 86 fl (84-94) 09/12/19 04:04 MCH 29 pg (28-32) 09/12/19 04:04 MCHC 33 % (32-34) 09/12/19 04:04 RDW 14.0 % (13.2-15.2) 09/12/19 04:04 Plt Count 305 K/mm3 (140-440) 09/12/19 04:04 Lymph % (Auto) 12.2 % (13.4-35.0) L 09/12/19 04:04 [place] % (Auto) 1.2 % (0.0-7.3) 09/12/19 04:04 Eos % (Auto) 0.1 % (0.0-4.3) 09/12/19 04:04 Baso % (Auto) 0.2 % (0.0-1.8) 09/12/19 04:04 Lymph # 0.5 K/mm3 (1.2-5.4) L 09/12/19 04:04 [place] # 0.0 K/mm3 (0.0-0.8) 09/12/19 04:04 Eos # 0.0 K/mm3 (0.0-0.4) 09/12/19 04:04 Baso # 0.0 K/mm3 (0.0-0.1) 09/12/19 04:04 Seg Neutrophils % 86.3 % (40.0-70.0) H 09/12/19 04:04 Seg Neutrophils # 3.5 K/mm3 (1.8-7.7) 09/12/19 04:04 PT 13.5 Sec. (12.2-14.9) 09/11/19 13:22 INR 1.02 (0.87-1.13) 09/11/19 13:22 APTT 41.7 Sec. (24.2-36.6) H 09/11/19 13:22 VBG pH 7.297 (7.320-7.420) L 09/11/19 13:22 Sodium 134 mmol/L (137-145) L 09/12/19 04:04 Potassium 4.3 mmol/L (3.6-5.0) 09/12/19 04:04 Chloride 94.6 mmol/L (98-107) L 09/12/19 04:04 Carbon Dioxide 23 mmol/L (22-30) 09/12/19 04:04 Anion Gap 21 mmol/L 09/12/19 04:04 BUN 16 mg/dL (9-20) 09/12/19 04:04 Creatinine 0.6 mg/dL (0.8-1.5) L 09/12/19 04:04 Estimated GFR > 60 ml/min 09/12/19 04:04 BUN/Creatinine Ratio 27 % 09/12/19 04:04 Glucose 413 mg/dL (75-100) H 09/12/19 04:04 POC Glucose 299 (70-105) H 09/14/19 07:52 Hemoglobin A1c 12.2 % (4-6) H 09/13/19 04:06 Calcium 9.0 mg/dL (8.4-10.2) 09/12/19 04:04 Total Bilirubin 0.30 mg/dL (0.1-1.2) 09/11/19 13:22 AST 17 units/L (5-40) 09/11/19 13:22 ALT 7 units/L (7-56) 09/11/19 13:22 Alkaline Phosphatase 101 units/L (35-129) 09/11/19 13:22 Troponin T < 0.010 ng/mL (0.00-0.029) 09/11/19 13:22 Total Protein 7.5 g/dL (6.3-8.2) 09/11/19 13:22 Albumin 3.9 g/dL (3.9-5) 09/11/19 13:22 Albumin/Globulin Ratio 1.1 % 09/11/19 13:22 TSH 1.460 mlU/mL (0.270-4.200) 09/11/19 13:22 [place]/IV: Voiding Method Urinal IV Catheter Type [Right INT / Saline Lock Forearm] IV Catheter Type [Right Peripheral IV Antecubital] Active Medications - Current Medications Current Medications: Generic Name Dose Route Start Last Admin Trade Name Freq PRN Reason Stop Dose Admin Albuterol 2.5 mg 09/11/19 15:14 Proventil IH Q3HRT PRN Shortness Of Breath Dexamethasone 6 mg 09/11/19 19:30 09/14/19 06:01 Decadron IV 6 mg Q6HR DENISE Administration Levetiracetam 500 mg/ Dextrose 105 mls @ 400 mls/hr 09/11/19 22:00 09/13/19 22:20 IV 400 mls/hr Q12HR DENISE Administration Insulin Human Isoph/Insulin Regular 10 unit 09/13/19 08:00 09/13/19 17:35 Humulin 70/30 SUB-Q 10 unit BIDDIAB DENISE Administration Insulin Human Lispro 0 unit 09/12/19 16:30 09/13/19 22:22 Humalog SUB-Q 4 unit ACHS DENISE Administration Protocol Sodium Chloride 10 ml 09/11/19 22:00 09/13/19 22:23 Sodium Chloride Flush Syringe 10 Ml IV 10 ml BID DENISE Administration Sodium Chloride 10 ml 09/11/19 15:14 Sodium Chloride Flush Syringe 10 Ml IV PRN PRN LINE FLUSH Nutrition/Malnutrition Assess - Dietary Evaluation Nutrition/Malnutrition Findings: Nutrition Notes Start: 09/12/19 11:14 Freq: Status: Active Protocol: Document 09/12/19 11:14 MK (Rec: 09/12/19 11:28 [id number]) Co-Sign 09/12/19 11:14 LM Nutrition Notes 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 Pt reports eating well and good appetite. Pt reports weight loss in last year due to high smoking and coffee consuption which he has recently decreased. Burn Absent Trauma Absent GI Symptoms None Current % PO Good (75-100%) Minimum of two criteria No Interpretation of Weight Loss (severe) > 20% in 1 year #1 Nutrition Diagnosis Food and nutrition-related knowledge deficit Etiology No prior education As Evidenced by Signs and Symptoms Pt report, recent DM diagnosis Is patient on ventilator? No Is Patient Ambulatory and/or Out of Bed Yes REE-([place]-[facility]-ambulatory/OOB) [ 1860.625 [id number]] Calculation Used for Recommendations [place] Additional Notes Pro: 65-78 g (1-1.2 g/kg) Fluid: 1 ml/kcal Nutrition Intervention Change Diet Order: Continue Teaching Recipient Patient,Family Learning Readiness Good Teaching Methods Discussion,Handout Response to Teaching Verbalize understanding, Reinforcement needed Education Handouts Provided Quick Refrence for CHO Counting Hypo/Hyperglycemia Signs CHO Counting for People with DM DM Label Reading Tips Barriers to Learning No Barriers RD phone number provided Yes Patient aware of follow up options Yes Goal #1 Understanding of consistent CHO diet Anticipated Discharge Needs: Consistent CHO Follow-Up By: 09/14/19 Additional Comments FU for DM education reinforcement
[2019-09-14] MEDS: INSULIN LISPRO 100 UNIT/ML SUB-Q SCH ×3 (08:30→17:15)
[2019-09-14] MEDS: INSULIN NPH/REGULAR 70/30 INJ SUB-Q SCH ×2 (08:44→17:25)
--- NOTE | 2019-09-14 09:54 | Progress Note ---
Assessment and Plan 1. Repeat Head CT today 2. Patient tentatively on schedule for 1430 tomorrow. Please make NPO after midnight 3. Hopeful that swelling has not worsened, as I am concerned about increase intracranial pressure 4. If not able to bronch tomorrow will attempt Wednesday. 5. Please continue steroids Subjective Date of service: 09/14/19 Interval history: Patient still with left sided weakness but now can move arm and lift up leg. Cannot push or pull or lift against resistance. and son at bedside. Unable to get thora done yesterday. Objective Vital Signs - 12hr 09/13/19 09/14/19 09/14/19 22:00 00:00 07:43 Temperature 98.3 F Pulse Rate 58 L 55 L Pulse Rate [ 58 L From Monitor] Respiratory 20 18 Rate Blood Pressure 97/52 O2 Sat by Pulse 93 91 Oximetry Constitutional: no acute distress, alert Eyes: non-icteric ENT: oropharynx moist Neck: supple, no JVD Effort: normal Ascultation: Right: diminished breath sounds (upper lobe), Left: clear Percussion: Right: dull (upper lobe) Cardiovascular: regular rate and rhythm Gastrointestinal: normoactive bowel sounds, soft Extremities: no edema CBC and BMP: 09/12/19 04:04 09/12/19 04:04 ABG, PT/INR, D-dimer: PT/INR, D-dimer PT 13.5 Sec. (12.2-14.9) 09/11/19 13:22 INR 1.02 (0.87-1.13) 09/11/19 13:22 Abnormal lab findings: Abnormal Labs 09/11/19 09/11/19 09/11/19 13:22 13:22 13:22 WBC Lymph % (Auto) [place] % (Auto) 7.6 H Lymph # Seg Neutrophils % APTT 41.7 H VBG pH Sodium Chloride 94.9 L Creatinine 0.6 L Glucose 248 H POC Glucose Hemoglobin A1c 09/11/19 09/12/19 09/12/19 13:22 04:04 04:04 WBC 4.1 L Lymph % (Auto) 12.2 L [place] % (Auto) Lymph # 0.5 L Seg Neutrophils % 86.3 H APTT VBG pH 7.297 L Sodium 134 L Chloride 94.6 L Creatinine 0.6 L Glucose 413 H POC Glucose Hemoglobin A1c 09/12/19 09/12/19 09/12/19 12:50 17:37 21:33 WBC Lymph % (Auto) [place] % (Auto) Lymph # Seg Neutrophils % APTT VBG pH Sodium Chloride Creatinine Glucose POC Glucose 382 H 259 H 279 H Hemoglobin A1c 09/13/19 09/13/19 09/13/19 04:06 07:52 12:56 WBC Lymph % (Auto) [place] % (Auto) Lymph # Seg Neutrophils % APTT VBG pH Sodium Chloride Creatinine Glucose POC Glucose 257 H 151 H Hemoglobin A1c 12.2 H 09/13/19 09/13/19 09/14/19 16:32 21:16 07:52 WBC Lymph % (Auto) [place] % (Auto) Lymph # Seg Neutrophils % APTT VBG pH Sodium Chloride Creatinine Glucose POC Glucose 268 H 259 H 299 H Hemoglobin A1c
[2019-09-14] MEDS: levETIRAcetam 500 MG in DEXTROSE 5% IN WATER 100 ML IV SCH ×2 (10:33→22:47)
--- NOTE | 2019-09-14 11:46 | Cat Scan Report ---
CT head/brain wo con INDICATION: Vasogenic Edema, mass effect. TECHNIQUE: Routine CT head without contrast. All CT scans at this location are performed using CT dos e reduction for ALARA by means of automated exposure control. COMPARISON: Brain MRI and head CT on 09/11/2019. FINDINGS: BRAIN / INTRACRANIAL CONTENTS: The degree of brain edema and mass effect in the bilateral cerebral he mispheres unchanged from the prior exam. There is no acute hemorrhage, hydrocephalus, or new signific ant abnormality. ORBITS: No significant abnormality of visualized orbits. SINUSES / MASTOIDS: No significant abnormality of visualized sinuses and mastoid air cells. ADDITIONAL FINDINGS: None. IMPRESSION: 1. No significant change in bilateral cerebral hemisphere white matter edema compared with 09/11/2019. No adverse change from that exam. Signer Name: Beau Velazco MD Signed: 09/14/2019 11:42 AM Workstation Name: [id number]
[2019-09-14] MEDS: ENOXAPARIN 40 MG/0.4 ML INJ SUB-Q SCH (22:47)
[2019-09-15 05:27] LABS: BUN/Creatinine Ratio 37; Blood Urea Nitrogen 22 mg/dL (9-20); Calcium 8.5 mg/dL (8.4-10.2); Hemolysis Index 4
[2019-09-15] MEDS: dexAMETHasone 4 MG/ML VIAL IV SCH ×4 (06:53→21:01)
[2019-09-15] MEDS: INSULIN LISPRO 100 UNIT/ML SUB-Q SCH ×4 (07:56→21:22)
[2019-09-15] MEDS ORDERED: propofoL 200 MG/20 ML VIAL IV ONE (09:17)
--- NOTE | 2019-09-15 09:26 | Anesthesia Consultation ---
Anesthesia Consult and Med Hx Date of service: 09/15/19 - Airway Anesthetic Teeth Evaluation: Edentulous ROM Head & Neck: Adequate Mental/Hyoid Distance: Adequate Mallampati Class: Class II Intubation Access Assessment: Probably Good - Pre-Operative Health Status ASA Pre-Surgery Classification: ASA3 Proposed Anesthetic Plan: MAC - Pulmonary Hx Respiratory Symptoms: Yes (bilateral pulmonary nodules) SOB: Yes - Central Nervous System CVA: No (brain nodules in both hemispheres) Hx Psychiatric Problems: No - Endocrine Hx Non-Insulin Dependent Diabetes: Yes
--- NOTE | 2019-09-15 09:27 | Anesthesia Day of Surgery ---
Anesthesia Day of Surgery - Day of Surgery Patient Examined: Yes Patient H&P Reviewed: Yes Patient is NPO: Yes
--- NOTE | 2019-09-15 10:05 | Procedure Note ---
Date of procedure: 09/15/19 Pre-op diagnosis: Lung Cancer Post-op diagnosis: same Procedure: Flexible Bronchoscopy with brushings and washings After obtaining informed consent, patient prepped and taken to Endo suite. Using Mac Anesthesia, right nare used for scope passage without difficulty. Lido used on vocal cords, trachea and right mainstem. Extrinisc compression see at the level of the sheri. The Right Upper Lobe is completely occluded. Large mass, very friable seen, with mild oozing without touching it. Brushings done and Wash of the lesion. Good return on both. Scope retracted. Tolerated procedure with no immediate complications. Anesthesia: MAC Surgeon: YA BOONE Estimated blood loss: none Pathology: list (Right Upper Lobe/Mass Washing and Brushing) Specimen disposition: to lab Condition: stable Disposition: floor
[2019-09-15] MEDS: levETIRAcetam 500 MG in DEXTROSE 5% IN WATER 100 ML IV SCH ×2 (11:00→21:23)
[2019-09-15] MEDS: INSULIN NPH/REGULAR 70/30 INJ SUB-Q SCH ×2 (12:14→17:25)
--- NOTE | 2019-09-15 14:35 | Post Anesthesia Evaluation ---
- Post Anesthesia Evaluation Patient Participated: Yes Airway Patent: Yes Stable Respiratory Function: Yes Nausea/Vomiting: No Temp > 96.8F: Yes Pain Manageable: Yes Adequeate Hydration: Yes Anesthesia Complications: No
[2019-09-15] MEDS: MAGNESIUM HYDROXIDE (MOM) ORAL LIQD UDC PO PRN (17:25)
--- NOTE | 2019-09-15 19:47 | Progress Note ---
Assessment and Plan Assessment and plan: Patient had flexible Bronchoscopy today with brushings and washings; s/p bronchoscopy; 09/15/2019 Extrinisc compression see at the level of the sheri. The Right Upper Lobe is completely occluded. Large mass, very friable seen, with mild oozing without touching it. Brushings done and Wash of the lesion. Good return on both. Scope retracted. Tolerated procedure with no immediate complications. --Right upper lobe bronchogenic carcinoma; On CT chest, pulmonary following CT-guided biopsy/bronchoscopy per pulmonology oxygen titrate O2 sats to more than 90% --Complete collapse right upper lobe; Due to obstructing right upper lobe bronchogenic carcinoma Supportive care, pulmonary following Status post bronchoscopy and bronchial lavage and washings --Mediastinal metastatic lymph nodes; Supportive care, Oncology consult patient versus outpatient --Metastatic brain lesions/with vasogenic cerebral edema Follow-up CT head; no significant change from the previous CT Neurosurgeon evaluated the patient, on IV Decadron, IV Keppra, seizure precautions, poor prognosis. Oncology consult if needed --Hyponatremia; due to hyperglycemia as well as secondary to brain lesion Closely monitor electrolytes --Type 2 diabetes mellitus; uncontrolled Accu-Cheks, sliding scale coverage, ADA diet Long-acting insulin, check A1c Diabetic education, nutrition education --DVT prophylaxis; SCDs Lovenox --Full CODE STATUS Very poor prognosis D/W Patient and family History Interval history: Patient underwent bronchoscopy with brushings and washings Done by pulmonary critical, [facility] findings reviewed Patient tolerated the procedure Patient feels tired and mild discomfort Vital signs reviewed is at the bedside Hospitalist Physical - Constitutional Vitals: Temp Pulse Resp BP Pulse Ox 97.2 F L 64 20 95/44 90 09/15/19 14:00 09/15/19 14:00 09/15/19 14:00 09/15/19 14:00 09/15/19 14:00 General appearance: Present: no acute distress, well-nourished - EENT Eyes: Present: PERRL, EOM intact - Neck Neck: Present: supple, normal ROM - Respiratory Respiratory effort: normal Respiratory: bilateral: diminished, rhonchi, negative: rales, wheezing - Cardiovascular Rhythm: regular Heart Sounds: Present: S1 & S2 - Extremities Extremities: no ischemia, No edema Peripheral Pulses: within normal limits - Abdominal General gastrointestinal: soft, non-tender, non-distended, normal bowel sounds - Integumentary Integumentary: Present: clear, warm - Psychiatric Psychiatric: appropriate mood/affect, cooperative - Neurologic Neurologic: moves all extremities Results - Labs CBC & Chem 7: 09/12/19 04:04 09/15/19 04:50 Labs: Laboratory Last Values WBC 4.1 K/mm3 (4.5-11.0) L 09/12/19 04:04 RBC 4.41 M/mm3 (3.65-5.03) 09/12/19 04:04 Hgb 12.6 gm/dl (11.8-15.2) 09/12/19 04:04 Hct 37.7 % (35.5-45.6) 09/12/19 04:04 MCV 86 fl (84-94) 09/12/19 04:04 MCH 29 pg (28-32) 09/12/19 04:04 MCHC 33 % (32-34) 09/12/19 04:04 RDW 14.0 % (13.2-15.2) 09/12/19 04:04 Plt Count 305 K/mm3 (140-440) 09/12/19 04:04 Lymph % (Auto) 12.2 % (13.4-35.0) L 09/12/19 04:04 [place] % (Auto) 1.2 % (0.0-7.3) 09/12/19 04:04 Eos % (Auto) 0.1 % (0.0-4.3) 09/12/19 04:04 Baso % (Auto) 0.2 % (0.0-1.8) 09/12/19 04:04 Lymph # 0.5 K/mm3 (1.2-5.4) L 09/12/19 04:04 [place] # 0.0 K/mm3 (0.0-0.8) 09/12/19 04:04 Eos # 0.0 K/mm3 (0.0-0.4) 09/12/19 04:04 Baso # 0.0 K/mm3 (0.0-0.1) 09/12/19 04:04 Seg Neutrophils % 86.3 % (40.0-70.0) H 09/12/19 04:04 Seg Neutrophils # 3.5 K/mm3 (1.8-7.7) 09/12/19 04:04 PT 13.5 Sec. (12.2-14.9) 09/11/19 13:22 INR 1.02 (0.87-1.13) 09/11/19 13:22 APTT 41.7 Sec. (24.2-36.6) H 09/11/19 13:22 VBG pH 7.297 (7.320-7.420) L 09/11/19 13:22 Sodium 140 mmol/L (137-145) 09/15/19 04:50 Potassium 3.9 mmol/L (3.6-5.0) 09/15/19 04:50 Chloride 101.6 mmol/L (98-107) 09/15/19 04:50 Carbon Dioxide 26 mmol/L (22-30) 09/15/19 04:50 Anion Gap 16 mmol/L 09/15/19 04:50 BUN 22 mg/dL (9-20) H 09/15/19 04:50 Creatinine 0.6 mg/dL (0.8-1.5) L 09/15/19 04:50 Estimated GFR > 60 ml/min 09/15/19 04:50 BUN/Creatinine Ratio 37 % 09/15/19 04:50 Glucose 216 mg/dL (75-100) H 09/15/19 04:50 POC Glucose 336 (70-105) H 09/15/19 16:48 Hemoglobin A1c 12.2 % (4-6) H 09/13/19 04:06 Calcium 8.5 mg/dL (8.4-10.2) 09/15/19 04:50 Total Bilirubin 0.30 mg/dL (0.1-1.2) 09/11/19 13:22 AST 17 units/L (5-40) 09/11/19 13:22 ALT 7 units/L (7-56) 09/11/19 13:22 Alkaline Phosphatase 101 units/L (35-129) 09/11/19 13:22 Troponin T < 0.010 ng/mL (0.00-0.029) 09/11/19 13:22 Total Protein 7.5 g/dL (6.3-8.2) 09/11/19 13:22 Albumin 3.9 g/dL (3.9-5) 09/11/19 13:22 Albumin/Globulin Ratio 1.1 % 09/11/19 13:22 TSH 1.460 mlU/mL (0.270-4.200) 09/11/19 13:22 [place]/IV: Voiding Method Condom Catheter IV Catheter Type [Right INT / Saline Lock Forearm] IV Catheter Type [Right Peripheral IV Antecubital] Active Medications - Current Medications Current Medications: Generic Name Dose Route Start Last Admin Trade Name Freq PRN Reason Stop Dose Admin Albuterol 2.5 mg 09/11/19 15:14 Proventil IH Q3HRT PRN Shortness Of Breath Dexamethasone 6 mg 09/11/19 19:30 09/15/19 17:25 Decadron IV 6 mg Q6HR DENISE Administration Enoxaparin Sodium 40 mg 09/14/19 22:00 09/14/19 22:47 Enoxaparin SUB-Q 40 mg QDAY@2200 DENISE Administration Levetiracetam 500 mg/ Dextrose 105 mls @ 400 mls/hr 09/11/19 22:00 09/15/19 11:00 IV 400 mls/hr Q12HR DENISE Administration Insulin Human Isoph/Insulin Regular 15 unit 09/14/19 16:41 09/15/19 17:25 Humulin 70/30 SUB-Q 15 unit BIDDIAB DENISE Administration Insulin Human Lispro 0 unit 09/12/19 16:30 09/15/19 17:27 Humalog SUB-Q 6 unit ACHS DENISE Administration Protocol Magnesium Hydroxide 30 ml 09/15/19 16:04 09/15/19 17:25 Milk Of Magnesia PO 30 ml QDAY PRN Administration Constipation Sodium Chloride 10 ml 09/11/19 22:00 09/15/19 11:12 Sodium Chloride Flush Syringe 10 Ml IV 10 ml BID DENISE Administration Sodium Chloride 10 ml 09/11/19 15:14 Sodium Chloride Flush Syringe 10 Ml IV PRN PRN LINE FLUSH Nutrition/Malnutrition Assess - Dietary Evaluation Nutrition/Malnutrition Findings: Nutrition Notes Start: 09/12/19 11:14 Freq: Status: Active Protocol: Document 09/14/19 10:49 LM (Rec: 09/14/19 10:50 LM [email or web address]) Nutrition Notes Initial or Follow up Brief Note Subjective/Other Information Pt and family not needing any further DM education at this time. Pt stated he is eating well. Nutrition Intervention Revisit per MD consult or patient Sign Off request:
[2019-09-15] MEDS: ENOXAPARIN 40 MG/0.4 ML INJ SUB-Q SCH (21:23)
[2019-09-16] MEDS: INSULIN LISPRO 100 UNIT/ML SUB-Q SCH ×5 (08:30→22:41)
[2019-09-16] MEDS: INSULIN NPH/REGULAR 70/30 INJ SUB-Q SCH ×2 (08:36→17:38)
[2019-09-16] MEDS: levETIRAcetam 500 MG TAB PO SCH ×2 (09:44→21:47)
[2019-09-16] MEDS: dexAMETHasone 4 MG/ML VIAL IV SCH ×4 (09:47→17:38)
--- NOTE | 2019-09-16 11:26 | Progress Note ---
Assessment and Plan 1. Await bronch results 2. Stable pulm [place] Subjective Date of service: 09/16/19 Interval history: No acute events. Tolerated bronch with no issues. Objective Vital Signs - 12hr 09/16/19 09/16/19 02:30 07:30 Temperature 98.3 F 97.7 F Pulse Rate 46 L 51 L Respiratory 18 18 Rate Blood Pressure 117/53 115/63 O2 Sat by Pulse 95 91 Oximetry Constitutional: no acute distress, alert Eyes: non-icteric ENT: oropharynx moist Neck: supple, no JVD Effort: normal Ascultation: Right: diminished breath sounds (upper lobe), Left: clear Percussion: Right: dull (upper lobe) Cardiovascular: regular rate and rhythm Gastrointestinal: normoactive bowel sounds, soft Extremities: no edema CBC and BMP: 09/12/19 04:04 09/15/19 04:50 ABG, PT/INR, D-dimer: PT/INR, D-dimer PT 13.5 Sec. (12.2-14.9) 09/11/19 13:22 INR 1.02 (0.87-1.13) 09/11/19 13:22 Abnormal lab findings: Abnormal Labs 09/11/19 09/11/19 09/11/19 13:22 13:22 13:22 WBC Lymph % (Auto) [place] % (Auto) 7.6 H Lymph # Seg Neutrophils % APTT 41.7 H VBG pH Sodium Chloride 94.9 L BUN Creatinine 0.6 L Glucose 248 H POC Glucose Hemoglobin A1c 09/11/19 09/12/19 09/12/19 13:22 04:04 04:04 WBC 4.1 L Lymph % (Auto) 12.2 L [place] % (Auto) Lymph # 0.5 L Seg Neutrophils % 86.3 H APTT VBG pH 7.297 L Sodium 134 L Chloride 94.6 L BUN Creatinine 0.6 L Glucose 413 H POC Glucose Hemoglobin A1c 09/12/19 09/12/19 09/12/19 12:50 17:37 21:33 WBC Lymph % (Auto) [place] % (Auto) Lymph # Seg Neutrophils % APTT VBG pH Sodium Chloride BUN Creatinine Glucose POC Glucose 382 H 259 H 279 H Hemoglobin A1c 09/13/19 09/13/19 09/13/19 04:06 07:52 12:56 WBC Lymph % (Auto) [place] % (Auto) Lymph # Seg Neutrophils % APTT VBG pH Sodium Chloride BUN Creatinine Glucose POC Glucose 257 H 151 H Hemoglobin A1c 12.2 H 09/13/19 09/13/19 09/14/19 16:32 21:16 07:52 WBC Lymph % (Auto) [place] % (Auto) Lymph # Seg Neutrophils % APTT VBG pH Sodium Chloride BUN Creatinine Glucose POC Glucose 268 H 259 H 299 H Hemoglobin A1c 09/14/19 09/14/19 09/14/19 11:54 16:28 21:52 WBC Lymph % (Auto) [place] % (Auto) Lymph # Seg Neutrophils % APTT VBG pH Sodium Chloride BUN Creatinine Glucose POC Glucose 248 H 314 H 218 H Hemoglobin A1c 09/15/19 09/15/19 09/15/19 04:50 07:49 11:46 WBC Lymph % (Auto) [place] % (Auto) Lymph # Seg Neutrophils % APTT VBG pH Sodium Chloride BUN 22 H Creatinine 0.6 L Glucose 216 H POC Glucose 199 H 262 H Hemoglobin A1c 09/15/19 09/15/19 09/16/19 16:48 20:52 07:40 WBC Lymph % (Auto) [place] % (Auto) Lymph # Seg Neutrophils % APTT VBG pH Sodium Chloride BUN Creatinine Glucose POC Glucose 336 H 324 H 161 H Hemoglobin A1c
--- NOTE | 2019-09-16 16:00 | Progress Note ---
Assessment and Plan Assessment and plan: --General debility /neuro deficits; due to metastatic brain lesions Physical therapy recommended acute rehab, rehab consult placed DC planning per case management s/p bronchoscopy; 09/15/2019 Extrinisc compression see at the level of the sheri. The Right Upper Lobe is completely occluded. Large mass, very friable seen, with mild oozing without touching it. Brushings done and Wash of the lesion. Good return on both. Scope retracted. Tolerated procedure with no immediate complications. --Right upper lobe bronchogenic carcinoma; On CT chest, pulmonary following CT-guided biopsy/bronchoscopy per pulmonology oxygen titrate O2 sats to more than 90% --Complete collapse right upper lobe; Due to obstructing right upper lobe bronchogenic carcinoma Supportive care, pulmonary following Status post bronchoscopy and bronchial lavage and washings --Mediastinal metastatic lymph nodes; Supportive care, Oncology consult patient versus outpatient --Metastatic brain lesions/with vasogenic cerebral edema Follow-up CT head; no significant change from the previous CT Neurosurgeon evaluated the patient, on IV Decadron, IV Keppra, seizure precautions, poor prognosis. Oncology consult if needed --Hyponatremia; due to hyperglycemia as well as secondary to brain lesion Closely monitor electrolytes --Type 2 diabetes mellitus; uncontrolled Accu-Cheks, sliding scale coverage, ADA diet Long-acting insulin, check A1c Diabetic education, nutrition education --DVT prophylaxis; SCDs Lovenox --Full CODE STATUS Very poor prognosis, patient and family aware Plan of care reviewed with the patient's and other family members Also discussed with the patient's nurse History Interval history: Patient seen and examined at the bedside in his room this afternoon Multiple family members at the bedside Patient feels slightly better, still complains of generalized weakness Alert awake oriented Vital signs reviewed Hospitalist Physical - Constitutional Vitals: Temp Pulse Resp BP Pulse Ox 98.0 F 58 L 18 104/51 92 09/16/19 13:58 09/16/19 13:58 09/16/19 13:58 09/16/19 13:58 09/16/19 13:58 General appearance: Present: no acute distress, well-nourished, other - EENT Eyes: Present: PERRL, EOM intact - Neck Neck: Present: supple, normal ROM - Respiratory Respiratory effort: normal Respiratory: bilateral: diminished, rhonchi, negative: rales, wheezing - Cardiovascular Rhythm: regular Heart Sounds: Present: S1 & S2 - Extremities Extremities: no ischemia, No edema - Abdominal General gastrointestinal: soft, non-tender, non-distended, normal bowel sounds - Integumentary Integumentary: Present: clear, warm - Psychiatric Psychiatric: appropriate mood/affect, cooperative - Neurologic Neurologic: moves all extremities, other (Residual weakness) Results - Labs CBC & Chem 7: 09/12/19 04:04 09/15/19 04:50 Labs: Laboratory Last Values WBC 4.1 K/mm3 (4.5-11.0) L 09/12/19 04:04 RBC 4.41 M/mm3 (3.65-5.03) 09/12/19 04:04 Hgb 12.6 gm/dl (11.8-15.2) 09/12/19 04:04 Hct 37.7 % (35.5-45.6) 09/12/19 04:04 MCV 86 fl (84-94) 09/12/19 04:04 MCH 29 pg (28-32) 09/12/19 04:04 MCHC 33 % (32-34) 09/12/19 04:04 RDW 14.0 % (13.2-15.2) 09/12/19 04:04 Plt Count 305 K/mm3 (140-440) 09/12/19 04:04 Lymph % (Auto) 12.2 % (13.4-35.0) L 09/12/19 04:04 [place] % (Auto) 1.2 % (0.0-7.3) 09/12/19 04:04 Eos % (Auto) 0.1 % (0.0-4.3) 09/12/19 04:04 Baso % (Auto) 0.2 % (0.0-1.8) 09/12/19 04:04 Lymph # 0.5 K/mm3 (1.2-5.4) L 09/12/19 04:04 [place] # 0.0 K/mm3 (0.0-0.8) 09/12/19 04:04 Eos # 0.0 K/mm3 (0.0-0.4) 09/12/19 04:04 Baso # 0.0 K/mm3 (0.0-0.1) 09/12/19 04:04 Seg Neutrophils % 86.3 % (40.0-70.0) H 09/12/19 04:04 Seg Neutrophils # 3.5 K/mm3 (1.8-7.7) 09/12/19 04:04 PT 13.5 Sec. (12.2-14.9) 09/11/19 13:22 INR 1.02 (0.87-1.13) 09/11/19 13:22 APTT 41.7 Sec. (24.2-36.6) H 09/11/19 13:22 VBG pH 7.297 (7.320-7.420) L 09/11/19 13:22 Sodium 140 mmol/L (137-145) 09/15/19 04:50 Potassium 3.9 mmol/L (3.6-5.0) 09/15/19 04:50 Chloride 101.6 mmol/L (98-107) 09/15/19 04:50 Carbon Dioxide 26 mmol/L (22-30) 09/15/19 04:50 Anion Gap 16 mmol/L 09/15/19 04:50 BUN 22 mg/dL (9-20) H 09/15/19 04:50 Creatinine 0.6 mg/dL (0.8-1.5) L 09/15/19 04:50 Estimated GFR > 60 ml/min 09/15/19 04:50 BUN/Creatinine Ratio 37 % 09/15/19 04:50 Glucose 216 mg/dL (75-100) H 09/15/19 04:50 POC Glucose 160 (70-105) H 09/16/19 11:25 Hemoglobin A1c 12.2 % (4-6) H 09/13/19 04:06 Calcium 8.5 mg/dL (8.4-10.2) 09/15/19 04:50 Total Bilirubin 0.30 mg/dL (0.1-1.2) 09/11/19 13:22 AST 17 units/L (5-40) 09/11/19 13:22 ALT 7 units/L (7-56) 09/11/19 13:22 Alkaline Phosphatase 101 units/L (35-129) 09/11/19 13:22 Troponin T < 0.010 ng/mL (0.00-0.029) 09/11/19 13:22 Total Protein 7.5 g/dL (6.3-8.2) 09/11/19 13:22 Albumin 3.9 g/dL (3.9-5) 09/11/19 13:22 Albumin/Globulin Ratio 1.1 % 09/11/19 13:22 TSH 1.460 mlU/mL (0.270-4.200) 09/11/19 13:22 Jackson/IV: Voiding Method Condom Catheter IV Catheter Type [Right INT / Saline Lock Forearm] IV Catheter Type [Right Peripheral IV Antecubital] Active Medications - Current Medications Current Medications: Generic Name Dose Route Start Last Admin Trade Name Freq PRN Reason Stop Dose Admin Albuterol 2.5 mg 09/11/19 15:14 Proventil IH Q3HRT PRN Shortness Of Breath Dexamethasone 6 mg 09/11/19 19:30 09/16/19 11:19 Decadron IV 6 mg Q6HR DENISE Administration Enoxaparin Sodium 40 mg 09/14/19 22:00 09/15/19 21:23 Enoxaparin SUB-Q 40 mg QDAY@2200 DENISE Administration Insulin Human Isoph/Insulin Regular 15 unit 09/14/19 16:41 09/16/19 08:36 Humulin 70/30 SUB-Q 15 unit BIDDIAB DENISE Administration Insulin Human Lispro 0 unit 09/12/19 16:30 09/16/19 12:01 Humalog SUB-Q 2 unit ACHS DENISE Administration Protocol Levetiracetam 500 mg 09/16/19 10:00 09/16/19 09:44 Keppra PO 500 mg BID DENISE Administration Magnesium Hydroxide 30 ml 09/15/19 16:04 09/15/19 17:25 Milk Of Magnesia PO 30 ml QDAY PRN Administration Constipation Sodium Chloride 10 ml 09/11/19 22:00 09/16/19 09:47 Sodium Chloride Flush Syringe 10 Ml IV 10 ml BID DENISE Administration Sodium Chloride 10 ml 09/11/19 15:14 Sodium Chloride Flush Syringe 10 Ml IV PRN PRN LINE FLUSH Nutrition/Malnutrition Assess - Dietary Evaluation Nutrition/Malnutrition Findings: Nutrition Notes Start: 09/12/19 11:14 Freq: Status: Active Protocol: Document 09/14/19 10:49 LM (Rec: 09/14/19 10:50 LM [email or web address]) Nutrition Notes Initial or Follow up Brief Note Subjective/Other Information Pt and family not needing any further DM education at this time. Pt stated he is eating well. Nutrition Intervention Revisit per MD consult or patient Sign Off request:
[2019-09-16] MEDS: ENOXAPARIN 40 MG/0.4 ML INJ SUB-Q SCH (21:47)
[2019-09-17] MEDS: dexAMETHasone 4 MG/ML VIAL IV SCH ×5 (00:58→23:00)
[2019-09-17] MEDS: MAGNESIUM HYDROXIDE (MOM) ORAL LIQD UDC PO PRN ×2 (01:06→23:09)
[2019-09-17] MEDS: INSULIN LISPRO 100 UNIT/ML SUB-Q SCH ×4 (08:26→22:59)
[2019-09-17] MEDS: INSULIN NPH/REGULAR 70/30 INJ SUB-Q SCH ×2 (08:27→18:10)
[2019-09-17] MEDS: levETIRAcetam 500 MG TAB PO SCH ×2 (10:04→22:58)
--- NOTE | 2019-09-17 11:29 | Progress Note ---
Assessment and Plan 1. Await bronch results 2. Stable pulm [place] 3. Awaiting acute rehab Subjective Date of service: 09/17/19 Interval history: PT suggested Acute Rehab Objective Vital Signs - 12hr 09/17/19 09/17/19 09/17/19 00:00 03:16 03:17 Temperature 98.6 F Pulse Rate 51 L 50 L Pulse Rate [ From Monitor] Respiratory 20 18 Rate Blood Pressure 123/58 O2 Sat by Pulse 91 96 Oximetry 09/17/19 09/17/19 07:57 10:49 Temperature 98.5 F Pulse Rate 55 L Pulse Rate [ 55 L From Monitor] Respiratory 20 20 Rate Blood Pressure 89/44 O2 Sat by Pulse 100 100 Oximetry Constitutional: no acute distress, alert Eyes: non-icteric ENT: oropharynx moist Neck: supple, no JVD Effort: normal Ascultation: Right: diminished breath sounds (upper lobe), Left: clear Percussion: Right: dull (upper lobe) Cardiovascular: regular rate and rhythm Gastrointestinal: normoactive bowel sounds, soft Extremities: no edema CBC and BMP: 09/12/19 04:04 09/15/19 04:50 ABG, PT/INR, D-dimer: PT/INR, D-dimer PT 13.5 Sec. (12.2-14.9) 09/11/19 13:22 INR 1.02 (0.87-1.13) 09/11/19 13:22 Abnormal lab findings: Abnormal Labs 09/11/19 09/11/19 09/11/19 13:22 13:22 13:22 WBC Lymph % (Auto) [place] % (Auto) 7.6 H Lymph # Seg Neutrophils % APTT 41.7 H VBG pH Sodium Chloride 94.9 L BUN Creatinine 0.6 L Glucose 248 H POC Glucose Hemoglobin A1c 09/11/19 09/12/19 09/12/19 13:22 04:04 04:04 WBC 4.1 L Lymph % (Auto) 12.2 L [place] % (Auto) Lymph # 0.5 L Seg Neutrophils % 86.3 H APTT VBG pH 7.297 L Sodium 134 L Chloride 94.6 L BUN Creatinine 0.6 L Glucose 413 H POC Glucose Hemoglobin A1c 09/12/19 09/12/19 09/12/19 12:50 17:37 21:33 WBC Lymph % (Auto) [place] % (Auto) Lymph # Seg Neutrophils % APTT VBG pH Sodium Chloride BUN Creatinine Glucose POC Glucose 382 H 259 H 279 H Hemoglobin A1c 09/13/19 09/13/19 09/13/19 04:06 07:52 12:56 WBC Lymph % (Auto) [place] % (Auto) Lymph # Seg Neutrophils % APTT VBG pH Sodium Chloride BUN Creatinine Glucose POC Glucose 257 H 151 H Hemoglobin A1c 12.2 H 09/13/19 09/13/19 09/14/19 16:32 21:16 07:52 WBC Lymph % (Auto) [place] % (Auto) Lymph # Seg Neutrophils % APTT VBG pH Sodium Chloride BUN Creatinine Glucose POC Glucose 268 H 259 H 299 H Hemoglobin A1c 09/14/19 09/14/19 09/14/19 11:54 16:28 21:52 WBC Lymph % (Auto) [place] % (Auto) Lymph # Seg Neutrophils % APTT VBG pH Sodium Chloride BUN Creatinine Glucose POC Glucose 248 H 314 H 218 H Hemoglobin A1c 09/15/19 09/15/19 09/15/19 04:50 07:49 11:46 WBC Lymph % (Auto) [place] % (Auto) Lymph # Seg Neutrophils % APTT VBG pH Sodium Chloride BUN 22 H Creatinine 0.6 L Glucose 216 H POC Glucose 199 H 262 H Hemoglobin A1c 09/15/19 09/15/19 09/16/19 16:48 20:52 07:40 WBC Lymph % (Auto) [place] % (Auto) Lymph # Seg Neutrophils % APTT VBG pH Sodium Chloride BUN Creatinine Glucose POC Glucose 336 H 324 H 161 H Hemoglobin A1c 09/16/19 09/16/19 09/16/19 11:25 16:47 22:10 WBC Lymph % (Auto) [place] % (Auto) Lymph # Seg Neutrophils % APTT VBG pH Sodium Chloride BUN Creatinine Glucose POC Glucose 160 H 219 H 236 H Hemoglobin A1c 09/17/19 08:07 WBC Lymph % (Auto) [place] % (Auto) Lymph # Seg Neutrophils % APTT VBG pH Sodium Chloride BUN Creatinine Glucose POC Glucose 215 H Hemoglobin A1c
--- NOTE | 2019-09-17 13:34 | Progress Note ---
Assessment and Plan Assessment and plan: PT recommend acute rehab placement; Awaiting evaluation by rehab personnel --Type 2 diabetes mellitus; uncontrolled Accu-Cheks, sliding scale coverage, ADA diet Increase Novolin 70/30 to 18 units bidcheck A1c Diabetic education, nutrition education --General debility /neuro deficits; due to metastatic brain lesions Physical therapy recommended acute rehab, rehab consult placed DC planning per case management s/p bronchoscopy; 09/15/2019 Extrinisc compression see at the level of the sheri. The Right Upper Lobe is completely occluded. Large mass, very friable seenwith mild oozing without touching it. Brushings done and Wash of the lesion. Good return on both. Scope retracted. Tolerated procedure with no immediate complications. --Right upper lobe bronchogenic carcinoma; On CT chest, pulmonary following CT-guided biopsy/bronchoscopy per pulmonology oxygen titrate O2 sats to more than 90% --Complete collapse right upper lobe; Due to obstructing right upper lobe bronchogenic carcinoma Supportive care, pulmonary following Status post bronchoscopy and bronchial lavage and washings --Mediastinal metastatic lymph nodes; Supportive care, Oncology consult patient versus outpatient --Metastatic brain lesions/with vasogenic cerebral edema Follow-up CT head; no significant change from the previous CT Neurosurgeon evaluated the patient, on IV Decadron, IV Keppra, seizure precautions, poor prognosis. Out patient Oncology/radiation oncology evaluation --Hyponatremia; due to hyperglycemia as well as secondary to brain lesion Closely monitor electrolytes --Type 2 diabetes mellitus; uncontrolled Accu-Cheks, sliding scale coverage, ADA diet Long-acting insulin, check A1c Diabetic education, nutrition education --DVT prophylaxis; SCDs Lovenox --Full CODE STATUS Very poor prognosis, patient and family aware Plan of care reviewed with the patient's and other family members Also discussed with the patient's nurse History Interval history: Patient seen and examined at the bedside this morning Patient's is in the room Patient feels slightly better blood pressures in the lower range Blood sugars are uncontrolled partly secondary to steroid use Patient complains of generalized weakness Vital signs reviewed PT has recommended acute rehab Awaiting evaluation Hospitalist Physical - Constitutional Vitals: Temp Pulse Resp BP Pulse Ox 98.5 F 55 L 20 89/44 100 09/17/19 07:57 09/17/19 10:49 09/17/19 10:49 09/17/19 07:57 09/17/19 10:49 General appearance: Present: no acute distress, well-nourished, other - EENT Eyes: Present: PERRL, EOM intact - Neck Neck: Present: supple, normal ROM - Respiratory Respiratory effort: normal Respiratory: bilateral: diminished, negative: rales, rhonchi, wheezing - Cardiovascular Rhythm: regular Heart Sounds: Present: S1 & S2 - Extremities Extremities: no ischemia, No edema - Abdominal General gastrointestinal: soft, non-tender, normal bowel sounds - Integumentary Integumentary: Present: clear, warm - Psychiatric Psychiatric: appropriate mood/affect, cooperative - Neurologic Neurologic: CNII-XII intact, moves all extremities Results - Labs CBC & Chem 7: 09/12/19 04:04 09/15/19 04:50 Labs: Laboratory Last Values WBC 4.1 K/mm3 (4.5-11.0) L 09/12/19 04:04 RBC 4.41 M/mm3 (3.65-5.03) 09/12/19 04:04 Hgb 12.6 gm/dl (11.8-15.2) 09/12/19 04:04 Hct 37.7 % (35.5-45.6) 09/12/19 04:04 MCV 86 fl (84-94) 09/12/19 04:04 MCH 29 pg (28-32) 09/12/19 04:04 MCHC 33 % (32-34) 09/12/19 04:04 RDW 14.0 % (13.2-15.2) 09/12/19 04:04 Plt Count 305 K/mm3 (140-440) 09/12/19 04:04 Lymph % (Auto) 12.2 % (13.4-35.0) L 09/12/19 04:04 [place] % (Auto) 1.2 % (0.0-7.3) 09/12/19 04:04 Eos % (Auto) 0.1 % (0.0-4.3) 09/12/19 04:04 Baso % (Auto) 0.2 % (0.0-1.8) 09/12/19 04:04 Lymph # 0.5 K/mm3 (1.2-5.4) L 09/12/19 04:04 [place] # 0.0 K/mm3 (0.0-0.8) 09/12/19 04:04 Eos # 0.0 K/mm3 (0.0-0.4) 09/12/19 04:04 Baso # 0.0 K/mm3 (0.0-0.1) 09/12/19 04:04 Seg Neutrophils % 86.3 % (40.0-70.0) H 09/12/19 04:04 Seg Neutrophils # 3.5 K/mm3 (1.8-7.7) 09/12/19 04:04 PT 13.5 Sec. (12.2-14.9) 09/11/19 13:22 INR 1.02 (0.87-1.13) 09/11/19 13:22 APTT 41.7 Sec. (24.2-36.6) H 09/11/19 13:22 VBG pH 7.297 (7.320-7.420) L 09/11/19 13:22 Sodium 140 mmol/L (137-145) 09/15/19 04:50 Potassium 3.9 mmol/L (3.6-5.0) 09/15/19 04:50 Chloride 101.6 mmol/L (98-107) 09/15/19 04:50 Carbon Dioxide 26 mmol/L (22-30) 09/15/19 04:50 Anion Gap 16 mmol/L 09/15/19 04:50 BUN 22 mg/dL (9-20) H 09/15/19 04:50 Creatinine 0.6 mg/dL (0.8-1.5) L 09/15/19 04:50 Estimated GFR > 60 ml/min 09/15/19 04:50 BUN/Creatinine Ratio 37 % 09/15/19 04:50 Glucose 216 mg/dL (75-100) H 09/15/19 04:50 POC Glucose 279 (70-105) H 09/17/19 11:47 Hemoglobin A1c 12.2 % (4-6) H 09/13/19 04:06 Calcium 8.5 mg/dL (8.4-10.2) 09/15/19 04:50 Total Bilirubin 0.30 mg/dL (0.1-1.2) 09/11/19 13:22 AST 17 units/L (5-40) 09/11/19 13:22 ALT 7 units/L (7-56) 09/11/19 13:22 Alkaline Phosphatase 101 units/L (35-129) 09/11/19 13:22 Troponin T < 0.010 ng/mL (0.00-0.029) 09/11/19 13:22 Total Protein 7.5 g/dL (6.3-8.2) 09/11/19 13:22 Albumin 3.9 g/dL (3.9-5) 09/11/19 13:22 Albumin/Globulin Ratio 1.1 % 09/11/19 13:22 TSH 1.460 mlU/mL (0.270-4.200) 09/11/19 13:22 Jackson/IV: Voiding Method Urinal IV Catheter Type [Right INT / Saline Lock Forearm] IV Catheter Type [Right Peripheral IV Antecubital] Active Medications - Current Medications Current Medications: Generic Name Dose Route Start Last Admin Trade Name Freq PRN Reason Stop Dose Admin Albuterol 2.5 mg 09/11/19 15:14 Proventil IH Q3HRT PRN Shortness Of Breath Dexamethasone 6 mg 09/11/19 19:30 09/17/19 12:42 Decadron IV 6 mg Q6HR DENISE Administration Enoxaparin Sodium 40 mg 09/14/19 22:00 09/16/19 21:47 Enoxaparin SUB-Q 40 mg QDAY@2200 DENISE Administration Insulin Human Isoph/Insulin Regular 18 unit 09/17/19 13:32 Humulin 70/30 SUB-Q BIDDIAB DENISE Insulin Human Lispro 0 unit 09/12/19 16:30 09/17/19 12:38 Humalog SUB-Q 4 unit ACHS DENISE Administration Protocol Levetiracetam 500 mg 09/16/19 10:00 09/17/19 10:04 Keppra PO 500 mg BID DENISE Administration Magnesium Hydroxide 30 ml 09/15/19 16:04 09/17/19 01:06 Milk Of Magnesia PO 30 ml QDAY PRN Administration Constipation Pneumococcal 13-Valent Conj Vacc 0.5 ml 09/18/19 12:00 Prevnar 13 IM 09/18/19 12:01 .ONCE ONE Sodium Chloride 10 ml 09/11/19 22:00 09/17/19 10:04 Sodium Chloride Flush Syringe 10 Ml IV 10 ml BID DENISE Administration Sodium Chloride 10 ml 09/11/19 15:14 Sodium Chloride Flush Syringe 10 Ml IV PRN PRN LINE FLUSH Nutrition/Malnutrition Assess - Dietary Evaluation Nutrition/Malnutrition Findings: Nutrition Notes Start: 09/12/19 11:14 Freq: Status: Active Protocol: Document 09/14/19 10:49 LM (Rec: 09/14/19 10:50 LM [email or web address]) Nutrition Notes Initial or Follow up Brief Note Subjective/Other Information Pt and family not needing any further DM education at this time. Pt stated he is eating well. Nutrition Intervention Revisit per MD consult or patient Sign Off request:
[2019-09-17] MEDS ORDERED: SODIUM CHLORIDE 0.9% 1000 ML 1,000 ML IV SCH (14:00)
[2019-09-17] MEDS: ENOXAPARIN 40 MG/0.4 ML INJ SUB-Q SCH (22:58)
[2019-09-18] MEDS: dexAMETHasone 4 MG/ML VIAL IV SCH ×2 (06:02→12:12)
[2019-09-18] MEDS: INSULIN LISPRO 100 UNIT/ML SUB-Q SCH ×2 (07:52→12:00)
[2019-09-18] MEDS: INSULIN NPH/REGULAR 70/30 INJ SUB-Q SCH (08:52)
[2019-09-18] MEDS: levETIRAcetam 500 MG TAB PO SCH (10:33)
--- NOTE | 2019-09-18 11:14 | Progress Note ---
Subjective Date of service: 09/18/19 Objective Vital Signs - 12hr 09/18/19 09/18/19 09/18/19 02:41 02:43 02:46 Temperature 97.8 F Pulse Rate 54 L 51 L Respiratory Rate Blood Pressure 119/66 O2 Sat by Pulse 92 93 Oximetry 09/18/19 09/18/19 06:22 07:50 Temperature 98.0 F Pulse Rate 53 L 54 L Respiratory 20 Rate Blood Pressure 128/71 O2 Sat by Pulse 98 Oximetry Constitutional: no acute distress, alert Eyes: non-icteric ENT: oropharynx moist Neck: supple, no JVD Effort: normal Ascultation: Right: diminished breath sounds (upper lobe), Left: clear Percussion: Right: dull (upper lobe) Cardiovascular: regular rate and rhythm Gastrointestinal: normoactive bowel sounds, soft Extremities: no edema CBC and BMP: 09/12/19 04:04 09/15/19 04:50 ABG, PT/INR, D-dimer: PT/INR, D-dimer PT 13.5 Sec. (12.2-14.9) 09/11/19 13:22 INR 1.02 (0.87-1.13) 09/11/19 13:22 Abnormal lab findings: Abnormal Labs 09/11/19 09/11/19 09/11/19 13:22 13:22 13:22 WBC Lymph % (Auto) [place] % (Auto) 7.6 H Lymph # Seg Neutrophils % APTT 41.7 H VBG pH Sodium Chloride 94.9 L BUN Creatinine 0.6 L Glucose 248 H POC Glucose Hemoglobin A1c 09/11/19 09/12/19 09/12/19 13:22 04:04 04:04 WBC 4.1 L Lymph % (Auto) 12.2 L [place] % (Auto) Lymph # 0.5 L Seg Neutrophils % 86.3 H APTT VBG pH 7.297 L Sodium 134 L Chloride 94.6 L BUN Creatinine 0.6 L Glucose 413 H POC Glucose Hemoglobin A1c 09/12/19 09/12/19 09/12/19 12:50 17:37 21:33 WBC Lymph % (Auto) [place] % (Auto) Lymph # Seg Neutrophils % APTT VBG pH Sodium Chloride BUN Creatinine Glucose POC Glucose 382 H 259 H 279 H Hemoglobin A1c 09/13/19 09/13/19 09/13/19 04:06 07:52 12:56 WBC Lymph % (Auto) [place] % (Auto) Lymph # Seg Neutrophils % APTT VBG pH Sodium Chloride BUN Creatinine Glucose POC Glucose 257 H 151 H Hemoglobin A1c 12.2 H 09/13/19 09/13/19 09/14/19 16:32 21:16 07:52 WBC Lymph % (Auto) [place] % (Auto) Lymph # Seg Neutrophils % APTT VBG pH Sodium Chloride BUN Creatinine Glucose POC Glucose 268 H 259 H 299 H Hemoglobin A1c 09/14/19 09/14/19 09/14/19 11:54 16:28 21:52 WBC Lymph % (Auto) [place] % (Auto) Lymph # Seg Neutrophils % APTT VBG pH Sodium Chloride BUN Creatinine Glucose POC Glucose 248 H 314 H 218 H Hemoglobin A1c 09/15/19 09/15/19 09/15/19 04:50 07:49 11:46 WBC Lymph % (Auto) [place] % (Auto) Lymph # Seg Neutrophils % APTT VBG pH Sodium Chloride BUN 22 H Creatinine 0.6 L Glucose 216 H POC Glucose 199 H 262 H Hemoglobin A1c 09/15/19 09/15/19 09/16/19 16:48 20:52 07:40 WBC Lymph % (Auto) [place] % (Auto) Lymph # Seg Neutrophils % APTT VBG pH Sodium Chloride BUN Creatinine Glucose POC Glucose 336 H 324 H 161 H Hemoglobin A1c 09/16/19 09/16/19 09/16/19 11:25 16:47 22:10 WBC Lymph % (Auto) [place] % (Auto) Lymph # Seg Neutrophils % APTT VBG pH Sodium Chloride BUN Creatinine Glucose POC Glucose 160 H 219 H 236 H Hemoglobin A1c 09/17/19 09/17/19 09/17/19 08:07 11:47 17:00 WBC Lymph % (Auto) [place] % (Auto) Lymph # Seg Neutrophils % APTT VBG pH Sodium Chloride BUN Creatinine Glucose POC Glucose 215 H 279 H 289 H Hemoglobin A1c 09/17/19 09/18/19 21:45 07:57 WBC Lymph % (Auto) [place] % (Auto) Lymph # Seg Neutrophils % APTT VBG pH Sodium Chloride BUN Creatinine Glucose POC Glucose 294 H 251 H Hemoglobin A1c
[2019-09-18] MEDS ORDERED: FLU VACC QUAD 2019-20 (3 YR UP)/PF 60 MCG/0.5 ML SYRINGE IM ONE (12:00)
[2019-09-18] MEDS ORDERED: PNEUMOC 13-VAL CONJ-DIP CRM/PF 0.5 ML IM ONE (12:00)
[2019-09-18 14:24] VITALS: BP 112/60
--- NOTE | 2019-09-18 15:06 | Discharge Summary ---
Providers - Providers Date of Admission: 09/11/19 15:14 Date of discharge: 09/18/19 Attending physician: MARIANNE BESS 09/11/19 14:51 Consult to Physician [CONS] Routine Comment: Consulting Provider: ANAYA LEVY Physician Instructions: Reason For Exam: vasogenic edema brain, underlying mass 09/11/19 15:17 Consult to Physician [CONS] Routine Comment: Consulting Provider: YA CAMPBELL Physician Instructions: Reason For Exam: lung mass, bilateral 09/12/19 15:54 Occupational Therapy Evaluate and Treat [CONS] Urgent Comment: Reason For Exam: Generalized Weakness Physical Therapy Evaluation and Treat [CONS] Urgent Comment: Reason For Exam: Generalized Weakness 09/16/19 15:46 Consult Acute Rehabilitation [CONS] Routine Consulting Provider: Physician Instructions: Reason For Exam: IRU Evaluation Primary care physician: PANEL BUILDER Hospitalization Condition: Serious Disposition: DC/[place]-06 HOME [facility] Time spent for discharge: 32 min Core Measure Documentation - Palliative Care Palliative Care/ Comfort Measures: Not Applicable - Core Measures Any of the following diagnoses?: none Exam - Constitutional Vitals: Temp Pulse Resp BP Pulse Ox 98.0 F 59 L 20 112/60 96 09/18/19 13:23 09/18/19 13:23 09/18/19 13:23 09/18/19 13:23 09/18/19 13:23 General appearance: Present: no acute distress, cachectic - EENT Eyes: Present: PERRL, EOM intact - Neck Neck: Present: supple, normal ROM - Respiratory Respiratory effort: normal Respiratory: bilateral: diminished, rhonchi, negative: rales, wheezing - Cardiovascular Rhythm: regular Heart Sounds: Present: S1 & S2 - Extremities Extremities: no ischemia, No edema - Abdominal General gastrointestinal: Present: soft, non-tender, non-distended, normal bowel sounds - Integumentary Integumentary: Present: clear, warm - Musculoskeletal Musculoskeletal: generalized weakness - Psychiatric Psychiatric: appropriate mood/affect, cooperative - Neurologic Neurologic: moves all extremities Plan Activity: advance as tolerated, fall precautions Diet: diabetic Special Instructions: physical therapy Additional Instructions: Advised to see private hematology oncologist within 1 week. Complete biopsy report not available, check with oncologist/PMD/nurse liaison Dr. Campbell in 3 to 5 days. Advised to see Dr. Joel Wen[neurosurgery] if you have severe headache or dizziness Follow up with: PRIMARY CARE, [Primary Care Provider] - 7 Days SANDY VARGHESE MD [Staff Physician] - 7 Days YA CAMPBELL MD [Staff Physician] - 7 Days ANAYA LEVY MD [Staff Physician] - 7 Days Prescriptions: dexAMETHasone [Decadron] 4 mg PO Q8HR #60 tablet Lispro Insulin [HumaLOG] See Protocol SUB-Q ACHS #2 vial levETIRAcetam [Keppra TAB] 500 mg PO BID #60 tablet Insulin NPH/Regular [NovoLIN 70/30] 22 unit SUB-Q BIDDIAB #2 vial
[2019-09-18] MEDS ORDERED: INSULIN NPH/REGULAR 70/30 INJ SUB-Q SCH (15:07)
[2019-09-18] MEDS ORDERED: DEXAMETHASONE 4 MG TAB PO SCH (22:00)
== END 2019-09-18 17:20 | disposition home health service (06) | DRG 180 ==
LOC: ED 12:39 → IMCU 15:14 → 2B-ACE 09-12 20:17
PROVIDERS: ADMIT Internal Medicine; ATTEND Internal Medicine
PROC: 0B948ZZ Drainage of Right Upper Lobe Bronchus, Via Natural or Artificial Opening Endoscopic (ICD-10-PCS; principal; 2019-09-15)
PROC: 3E0234Z Introduction of Serum, Toxoid and Vaccine into Muscle, Percutaneous Approach (ICD-10-PCS; 2019-09-18)
DX: C34.11 Malignant neoplasm of upper lobe, right bronchus or lung (principal); G93.6 Cerebral edema; G81.94 Hemiplegia, unspecified affecting left nondominant side; C71.9 Malignant neoplasm of brain, unspecified; E87.1 Hypo-osmolality and hyponatremia; J98.19 Other pulmonary collapse; Z23 Encounter for immunization; C34.12 Malignant neoplasm of upper lobe, left bronchus or lung; E11.65 Type 2 diabetes mellitus with hyperglycemia; Z72.0 Tobacco use
CPT/HCPCS: 36415; 70450; 70553; 71045; 71250; 76604; 80048; 80053; 82805; 82962; 83036; 84443; 84484; 85025; 85610; 85730; 88104; 88112; 90670; 90686; 93005; 93010; G0378; A9577; J1100; J1650; J1815; J1953; J2704; J7030; J7050

== ENCOUNTER 2019-10-13 06:58 | Day surgery (SDC) | payer BC ==
[~2019-10-13 06:58] MED LIST: SODIUM CHLORIDE 0.9% 1000 ML 1,000 ML IV SCH
--- NOTE | 2019-10-13 07:49 | Anesthesia Consultation ---
Anesthesia Consult and Med Hx Date of service: 10/13/19 - Airway Anesthetic Teeth Evaluation: Edentulous ROM Head & Neck: Adequate Mental/Hyoid Distance: Adequate Mallampati Class: Class II Intubation Access Assessment: Probably Good - Pre-Operative Health Status ASA Pre-Surgery Classification: ASA4 Proposed Anesthetic Plan: MAC - Pulmonary Hx Smoking: Yes (past smoker - quit 2 months ago) Hx Asthma: No Hx Respiratory Symptoms: Yes (bilateral pulmonary nodules) SOB: No COPD: No Home Oxygen Therapy: No Hx Pneumonia: No Hx Sleep Apnea: Yes - Cardiovascular System Hx Hypertension: No Hx Coronary Artery Disease: No Hx Heart Attack/AMI: No Hx Angina: No Hx Percutaneous Transluminal Coronary Angioplasty (PTCA): No Hx Cardia Arrhythmia: No Hx Pacemaker: No Hx Internal Defibrillator: No Hx Valvular Heart Disease: No Hx Heart Murmur: No - Central Nervous System Hx Neuromuscular Disorder: Yes (left sided weakness) Hx Seizures: No (takes keppa) CVA: No (brain nodules in both hemispheres) Hx Back Pain: No Hx Psychiatric Problems: No - Gastrointestinal Hx Ulcer: No Hx Gastroesophageal Reflux Disease: No - Endocrine Hx Renal Disease: No Hx End Stage Renal Disease: No Hx Cirrhosis: No Hx Liver Disease: No Hx Insulin Dependent Diabetes: Yes Hx Non-Insulin Dependent Diabetes: No Hx Thyroid Disease: No Hx Hypothyroidism: No Hx Hyperthyroidism: No - Hematic Hx Anemia: No Hx Sickle Cell Disease: No - Other Systems Hx Alcohol Use: Yes (occ beer) Hx Substance Use: No Hx Cancer: Yes (lung ca/brain ca) Hx Obesity: No
--- NOTE | 2019-10-13 07:53 | Anesthesia Day of Surgery ---
Anesthesia Day of Surgery - Day of Surgery Patient Examined: Yes Patient H&P Reviewed: Yes Patient is NPO: Yes Beta Blockers: No
[2019-10-13] MEDS ORDERED: WATER FOR IRRIG STERILE 250 ML BOTTLE IR ONE (07:59)
[2019-10-13] MEDS ORDERED: propofoL 200 MG/20 ML VIAL IV ONE ×2 (08:04)
[2019-10-13] MEDS ORDERED: LIDOCAINE (2%) 20 MG/1 ML VIAL 20 ML MDV INFILTRATI ONE (08:09)
[2019-10-13] MEDS ORDERED: EPINEPHrine 1:10,000 1 MG/10 ML SYRINGE ONE (08:10)
[2019-10-13] MEDS ORDERED: LIDOCAINE VISCOUS 2% 15 ML ORAL LIQD ONE (08:10)
[2019-10-13] MEDS ORDERED: BENZOCAINE 20% TOP SPRAY 0.5 ML UNIT DOSE MM ONE (08:14)
[2019-10-13] MEDS ORDERED: fentaNYL 100 MCG/2 ML INJ ONE (08:24)
[2019-10-13] MEDS ORDERED: EPINEPHrine/PF (1:1,000) 1 MG/1 ML INJ ONE (08:30)
[2019-10-13] MEDS ORDERED: ALBUTEROL 2.5 MG/3 ML NEBU IH ONE ×2 (09:12→09:16)
[2019-10-13 10:00] VITALS: BP 119/64
[2019-10-13] MEDS ORDERED: ONDANSETRON 4 MG/2 ML INJ IV NR (10:04)
--- NOTE | 2019-10-13 17:21 | Post Anesthesia Evaluation ---
- Post Anesthesia Evaluation Patient Participated: Yes Airway Patent: Yes Stable Respiratory Function: Yes Nausea/Vomiting: No Temp > 96.8F: Yes Pain Manageable: Yes Adequeate Hydration: Yes Anesthesia Complications: No Block Receding Appropriately: Not Applicable Patient on Ventilator: No
--- NOTE | 2019-11-01 08:13 | Procedure Note ---
Date of procedure: 10/13/19 Pre-op diagnosis: Lung Cancer Post-op diagnosis: same Procedure: Flexible Bronch with biopsy After obtaining informed consent, patient taken to endo suite and prepped and layed supine. Adequate sedation achieved and scope passed through right nare without difficulty. Lido used on vocal cords tracea and right main stem. VC with good AB and AD duction. Mass seen in the same location as previous bronch. Biopsies taken x at 5 or 6 times. No bleeding noted. Scoped retracted and patient started to recover. Anesthesia: MAC Surgeon: YA BOONE Estimated blood loss: none Specimen disposition: to lab Condition: stable Disposition: same day
== END 2019-10-13 10:20 | disposition home or self-care (01) ==
LOC: GIO 06:58
PROVIDERS: ATTEND Specialist
DX: C34.11 Malignant neoplasm of upper lobe, right bronchus or lung (principal); R91.8 Other nonspecific abnormal finding of lung field; G47.30 Sleep apnea, unspecified; E11.9 Type 2 diabetes mellitus without complications; J18.8 Other pneumonia, unspecified organism; Z72.89 Other problems related to lifestyle; Z87.891 Personal history of nicotine dependence; Z79.84 Long term (current) use of oral hypoglycemic drugs; Z79.4 Long term (current) use of insulin; Z79.899 Other long term (current) drug therapy; Z98.890 Other specified postprocedural states; Z86.73 Personal history of transient ischemic attack (TIA), and cerebral infarction without residual deficits
CPT/HCPCS: 31625; 82962; 88305; 88312; 88341; 88342; J0171; J2405; J2704; J3010; J7030

== ENCOUNTER 2019-10-24 09:37 | Outpatient (CLI) | payer BC ==
[2019-10-24 10:05] LABS: Basophils % (Auto) 0.4 % (0.0-1.8); Eosinophils % (Auto) 0.4 % (0.0-4.3); Hematocrit 43.2 % (35.5-45.6); Hemoglobin 14.2 gm/dl (11.8-15.2); Lymphocytes # (Auto) 1.2 K/mm3 (1.2-5.4); Lymphocytes % (Auto) 9.7 % (13.4-35.0); Mean Corpuscular HGB Conc 33 % (32-34); Mean Corpuscular Volume 88 fl (84-94); Monocytes # (Auto) 0.9 K/mm3 (0.0-0.8); Monocytes % (Auto) 7.4 % (0.0-7.3); Platelet Count 293 K/mm3 (140-440); Red Blood Count 4.92 M/mm3 (3.65-5.03); Red Cell Distribution Width 17.9 % (13.2-15.2)
[2019-10-24 10:23] LABS: BUN/Creatinine Ratio 29; Blood Urea Nitrogen 23 mg/dL (9-20); Calcium 9.3 mg/dL (8.4-10.2); Hemolysis Index 11
== END 2019-10-24 09:38 | disposition home or self-care (01) ==
LOC: LAB 09:37
PROVIDERS: ATTEND Surgery
DX: C34.90 Malignant neoplasm of unspecified part of unspecified bronchus or lung (principal); C79.31 Secondary malignant neoplasm of brain
CPT/HCPCS: 36415; 80048; 85025

== ENCOUNTER 2019-10-25 05:52 | Day surgery (SDC) | payer BC ==
--- NOTE | 2019-10-24 11:15 | Short Stay Summary ---
Short Stay Documentation Date of service: 10/25/19 - History H&P: obtained from office Past Medical History: cancer - Allergies and Medications Current Medications: Allergies No Known Allergies Allergy (Unverified 09/11/19 12:46) Home Medications Medication Instructions Recorded Confirmed Last Taken Type metFORMIN [Glucophage] 500 mg PO AC 09/13/19 09/13/19 Unknown History Insulin NPH/Regular [NovoLIN 70/30] 22 unit SUB-Q BIDDIAB #2 vial 09/18/19 Unknown Rx Lispro Insulin [HumaLOG] See Protocol SUB-Q ACHS #2 vial 09/18/19 Unknown Rx dexAMETHasone [Decadron] 4 mg PO Q8HR #60 tablet 09/18/19 Unknown Rx levETIRAcetam [Keppra TAB] 500 mg PO BID #60 tablet 09/18/19 Unknown Rx Active Medications Acetaminophen (Tylenol) 1,000 mg PO PREOP NR Stop: 10/25/19 20:00 Celecoxib (Celebrex) 200 mg PO PREOP NR Stop: 10/25/19 20:00 Gabapentin (Gabapentin) 300 mg PO PREOP NR Stop: 10/25/19 18:00 Sodium Chloride (Nacl 0.9% 1000 Ml) 1,000 mls @ 75 mls/hr IV DIRECT DENISE Cefazolin Sodium (Ancef/Sterile Water 2 Gm/20 Ml) 2 gm in 20 mls @ 80 mls/hr IV PREOP NR; Protocol Stop: 10/25/19 18:00 - Physical exam General appearance: no acute distress Integumentary: no rash, no growths, no abnormal pigmentation HEENT: Atraumatic Lungs: Normal air movement Neurological: Normal speech - Brief post op/procedure progress note Date of procedure: 10/25/19 (dictation:[id number]) Pre-op diagnosis: metastatic lung cancer Post-op diagnosis: same Procedure: US guided port placement IVF 200cc EBL min Anesthesia: GETA Findings: normal anatomy Surgeon: VERONICA MARIE Estimated blood loss: minimal Pathology: none Condition: stable - Hospital course Hospital course: uneventful - Disposition Condition at discharge: Stable Disposition: DC-01 TO HOME OR SELFCARE Short Stay Discharge Plan Activity: advance as tolerated Diet: regular Wound: open to air, keep clean and dry Special Instructions: no heavy lifting Additional Instructions: Post Operative Instructions Activity: no heavy lifting for next 1 week. May shower tomorrow. Pat dry the wound or wounds. Keep incision sites clean and dry After surgery, start with a light diet. Consider starting with liquids. If you do well, you can advance to a regular diet as you feel comfortable. Apply an ice pack to the wound or wounds for 10-20 minutes at a time. Do this at least 4-5 times a day. You can do it more if he would like. Pain Medication Schedule for the first 2 days after surgery: Gabapentin 300mg twice a day Celebrex (celecoxib) 200mg twice a day Tylenol 500mg four times a day (every 6 hours) After the first 2 days, then take alternating doses of ibuprofen and Tylenol as needed for pain. Take 600 mg of ibuprofen every 6 hours as needed. Take 500 mg of Tylenol every 6 hours as needed. You should alternate these 2 medicines. Make sure you take the ibuprofen with food. It is very important that you use the prescription narcotic pain medicine (hydrocodone) only for very severe pain. Do not take the narcotic medicine before you try using all the medications listed above. We will call you in a couple of days to see how youre doing. If you have any questions or concerns, always feel free to call the clinic ([phone]) at any time. Follow up with: SHAYLEE KRISHNA MD [Primary Care Provider] - 7 Days Forms: Outpatient Surgery DC Inst. Prescriptions: Acetaminophen [Acetaminophen TAB] 500 mg PO Q6H #30 tablet Celecoxib [celeBREX] 200 mg PO BID #4 capsule Gabapentin 300 mg PO BID #4 capsule HYDROcodone/APAP 5-325 [[place] 5-325 mg TAB] 1 each PO Q6HR PRN #10 tablet PRN Reason: Pain
[~2019-10-25 05:52] MED LIST changes: +ACETAMINOPHEN 500 MG TAB PO NR; +CELECOXIB 200 MG CAP PO NR; +GABAPENTIN 300 MG CAP PO NR; +ceFAZolin/Water 2 GM/20 ML 2 GM/20 ML SYRINGE IV NR
[2019-10-25] MEDS ORDERED: BACTERIOSTATIC SODIUM CHLORIDE 0.9% 30 ML VIAL INFILTRATI ONE (06:49)
[2019-10-25] MEDS ORDERED: propofoL 200 MG/20 ML VIAL IV ONE (07:28)
[2019-10-25] MEDS ORDERED: fentaNYL 100 MCG/2 ML INJ ONE (07:28)
[2019-10-25] MEDS ORDERED: LIDOCAINE MPF (2%) 20 MG/1 ML VIAL 5 ML ONE (07:28)
--- NOTE | 2019-10-25 07:29 | Anesthesia Day of Surgery ---
Anesthesia Day of Surgery - Day of Surgery Patient Examined: Yes Patient H&P Reviewed: Yes Patient is NPO: Yes
--- NOTE | 2019-10-25 07:29 | Anesthesia Consultation ---
Anesthesia Consult and Med Hx Date of service: 10/25/19 - Airway Anesthetic Teeth Evaluation: Edentulous ROM Head & Neck: Adequate Mental/Hyoid Distance: Adequate Mallampati Class: Class II Intubation Access Assessment: Probably Good - Pre-Operative Health Status ASA Pre-Surgery Classification: ASA3 Proposed Anesthetic Plan: General - Pulmonary Hx Smoking: Yes (past smoker - quit 2 months ago) Hx Asthma: No Hx Respiratory Symptoms: Yes (bilateral pulmonary nodules) SOB: No (bilateral weezing in the lower lungs) COPD: No Hx Pneumonia: No Hx Sleep Apnea: Yes - Cardiovascular System Hx Hypertension: No Hx Coronary Artery Disease: No Hx Heart Attack/AMI: No Hx Angina: No Hx Percutaneous Transluminal Coronary Angioplasty (PTCA): No Hx Cardia Arrhythmia: No Hx Pacemaker: No Hx Internal Defibrillator: No Hx Valvular Heart Disease: No Hx Heart Murmur: No - Central Nervous System Hx Neuromuscular Disorder: Yes (left sided weakness) Hx Seizures: No (takes keppra) CVA: No (brain nodules in both hemispheres) Hx Back Pain: No Hx Psychiatric Problems: No - Gastrointestinal Hx Ulcer: No Hx Gastroesophageal Reflux Disease: No - Endocrine Hx Renal Disease: No Hx End Stage Renal Disease: No Hx Cirrhosis: No Hx Liver Disease: No Hx Insulin Dependent Diabetes: Yes Hx Non-Insulin Dependent Diabetes: No Hx Thyroid Disease: No Hx Hypothyroidism: No Hx Hyperthyroidism: No - Hematic Hx Anemia: No Hx Sickle Cell Disease: No - Other Systems Hx Alcohol Use: Yes (occ beer) Hx Substance Use: No Hx Cancer: Yes (lung ca/brain ca) Hx Obesity: No
[2019-10-25] MEDS ORDERED: ALBUTEROL 8.5 GM INHALATION IH NR (07:30)
[2019-10-25] MEDS ORDERED: BUPIVACAINE-EPINEPHRINE/PF 0.5%-1:200,000 (30 ML) VIAL INFILTRATI ONE ×2 (07:31→08:38)
[2019-10-25] MEDS ORDERED: LIDOCAINE (1%) 10 MG/1 ML VIAL 20 ML MDV ONE (07:31)
[2019-10-25] MEDS ORDERED: HEPARIN 10,000 UNITS/10 ML VIAL ONE (07:31)
[2019-10-25] MEDS ORDERED: SODIUM CHLORIDE 0.9% 250ML 250 ML ONE (07:32)
[2019-10-25] MEDS ORDERED: ONDANSETRON 4 MG/2 ML INJ ONE (08:23)
[2019-10-25] MEDS ORDERED: SODIUM CHLORIDE P/F VIAL 10 ML 10 ML ONE (08:23)
[2019-10-25] MEDS ORDERED: ePHEDrine SULFATE 50 MG/1 ML INJ ONE (08:23)
[2019-10-25] MEDS ORDERED: HEPARIN 10,000 UNITS/10 ML VIAL IR ONE (08:37)
[2019-10-25] MEDS ORDERED: LIDOCAINE (1%) 10 MG/1 ML VIAL 20 ML MDV INFILTRATI ONE (08:38)
[2019-10-25] MEDS ORDERED: SODIUM CHLORIDE 0.9% IRR 1,500 ML BOTTLE IR ONE (08:39)
[2019-10-25] MEDS ORDERED: SODIUM CHLORIDE 0.9% 250 ML IVPB IR ONE (08:39)
[2019-10-25] MEDS ORDERED: dexAMETHasone 20 MG/5 ML VIAL ONE (08:41)
--- NOTE | 2019-10-25 09:30 | Fluoroscopy Report ---
4 radiographic images submitted Indication: Intraoperative localization Impression: 4 images of the chest were submitted for documentation purposes with radiology involveme nt. New left-sided Port-A-Cath placement with tip in the SVC in satisfactory position. Slightly impr allison aeration in the right upper lobe where there is some persistent dense consolidation/underlying m ass. Lungs are otherwise clear. Fluoroscopic time: 5 seconds Signer Name: Sukhdeep Celis MD Signed: 10/25/2019 9:26 AM Workstation Name: [id number]
--- NOTE | 2019-10-25 10:23 | Operative Report ---
PREOPERATIVE DIAGNOSIS: Metastatic lung cancer. POSTOPERATIVE DIAGNOSIS: Metastatic lung cancer. PROCEDURES: 1. Insertion of tunneled centrally inserted central venous access device with subcutaneous port. 2. Ultrasound guidance for vascular access. ATTENDING PHYSICIAN: Skyler King MD ANESTHESIA: General. ESTIMATED BLOOD LOSS: Minimal. FLUIDS: 200 mL. FINDINGS: Normal vascular anatomy. IMPLANTS: Smart port. COMPLICATIONS: None. DISPOSITION: Stable, transferred to Recovery Room. INDICATIONS: This is a 69-year-old male who presented to the office for evaluation of port placement. The patient was recently diagnosed with metastatic lung cancer. The patient is in need of chemotherapy. The patient was assessed to be an adequate candidate. Procedure, risks, benefits were explained to the patient and . Risks include but were not limited to infection, bleeding, pain, injury to surrounding structures, possible need for further procedures in the future. The patient understood and consented. OPERATIVE NOTE: The patient was brought to the operating room and placed on the table in supine position. As anesthesia was getting ready, internal jugular vein and subclavian vein were evaluated via ultrasound. The patient appeared to be clinically dry. Subclavian vein kept collapsing with minimal pressure. Therefore, decision was made to proceed with internal jugular vein. A roll was placed underneath the shoulders. After adequate anesthesia had been established, sterile prep and drape was performed. Pressure points were padded. Timeout was called. SCDs were in place. Antibiotics have been given. I began by ultrasound again the internal jugular vein. Location was marked for needle insertion. Skin was anesthetized. Small transverse incision was made under ultrasound guidance. Introducer needle was advanced into the internal jugular vein. We had good aspiration of blood. Guidewire passed very easily. I was able to see the tip of the needle in the internal jugular vein with ultrasound. We confirmed the position of the wire with fluoroscopy. Thereafter, the wire was secured. I anesthetized the planned tract site and then the pocket site. Skin incision was made for the subcutaneous port. Pocket was created. We checked to make sure the port fit nicely. We injected additional local into the surrounding tissue. A tunneler was passed up to the neck and brought out through the initial incision. Dilator and sheath were passed over the wire. The wire was able to be moved easily during this time. Catheter was inserted. We checked the position under fluoroscopy. I then cut the catheter on the distal end at the appropriate location, taking care to make sure that the catheter was clamped to avoid air aspiration. We then placed the port in the pocket, placed the collar over the catheter and port secured. We were able to easily aspirate and flush with the heparinized saline. We made sure the catheter was in good position. Sheath was removed. The entire tract of the catheter looked good. There were no kinks and the distal end looked to be in appropriate position. Locking solution was administered. Additional local was administered. I closed the port site with interrupted 3-0 Vicryl sutures in the deep layer and then closed the skin with a running 4-0 Monocryl subcuticular stitch was placed at the neck. Skin was cleaned and dried. Dermabond was placed. The patient tolerated the procedure well. There were no complications. All counts were correct at the end of the case. Chest x-ray was done in the room at the end of the case, to my review; I saw no evidence of any complications. Catheter looked to be in good position. I spoke with the at the end of the case. JOB# [id number] LELIA/ANNIA
[2019-10-25 10:50] VITALS: BP 120/65
== END 2019-10-25 05:53 | disposition home or self-care (01) ==
LOC: OR 05:52
PROVIDERS: ATTEND Surgery
DX: C34.90 Malignant neoplasm of unspecified part of unspecified bronchus or lung (principal); C79.31 Secondary malignant neoplasm of brain; E11.9 Type 2 diabetes mellitus without complications; G81.94 Hemiplegia, unspecified affecting left nondominant side; G47.30 Sleep apnea, unspecified; Z79.84 Long term (current) use of oral hypoglycemic drugs; Z79.4 Long term (current) use of insulin; Z79.899 Other long term (current) drug therapy; Z87.891 Personal history of nicotine dependence; Z72.89 Other problems related to lifestyle; Z98.890 Other specified postprocedural states; Z86.73 Personal history of transient ischemic attack (TIA), and cerebral infarction without residual deficits
CPT/HCPCS: 36561; 76937; 77001; 82962; C1788; J0690; J1100; J1644; J2405; J2704; J3010; J7030; J7050

== ENCOUNTER 2019-11-22 06:49 | Outpatient (CLI) | payer BC, MEDICARE ==
--- NOTE | 2019-11-22 11:47 | Magnetic Resonance Report ---
MR brain wo/w con INDICATION / CLINICAL INFORMATION: 69 years Male; MAIN: MALIGNANT NEOPLASM OF UPPER LOBE,SECONDARY MALIGNANT NEOPLASM, LEFT SIDE WEAKNES S 15ML OF MULTIHANCE . TECHNIQUE: Multiplanar, multisequence MR images were obtained. COMPARISON: 09/11/2019 FINDINGS: Since prior exam, the lesion in the postcentral gyral region on the right is slightly reduced in size . Persistent, significant surrounding vasogenic edema seen, although slightly reduced. No signs of va sogenic edema seen in the lesion associated with the left middle frontal gyrus, which is improved fro m prior. In addition, cystic component of any of the intracranial lesions seen on prior exam is reduced or abs ent on the current study. Overall, multiple lesions again noted, although no definitive signs of new lesion are appreciated. No significant midline shift. Minimal mass effect noted from the edema. There is no evidence of hydrocephalus or significant hemorrhage. Orbits and surrounding soft tissues are grossly normal. Vascular flow-voids are normal in T1 and T2-weighted images. There is mild mucosal thickening in the ethmoids. IMPRESSION: 1. Interval improvement noted since recent prior exam, as described above. Signer Name: Skinny Grewal MD, III Signed: 11/22/2019 11:43 AM Workstation Name: [id number]
[2019-11-23 02:51] LABS: Blood Urea Nitrogen 13 mg/dL (9-20)
== END 2019-11-22 06:50 | disposition home or self-care (01) ==
LOC: MRI 06:49
DX: C79.31 Secondary malignant neoplasm of brain (principal); C34.11 Malignant neoplasm of upper lobe, right bronchus or lung
CPT/HCPCS: 36415; 70553; 82565; 84520; A9577